=== PATIENT | female | born 1970 ===

== ENCOUNTER 2022-04-11 13:34 | Inpatient (IN) ==
[2022-04-11] MEDS ORDERED: 0.9 % SODIUM CHLORIDE 2,000 ML IV ONE (13:54)
[2022-04-11] MEDS ORDERED: ACETAMINOPHEN 1,000 MG/100 ML BAG IV ONE (13:59)
[2022-04-11] MEDS ORDERED: VANCOMYCIN 1,000 MG in 0.9 % SODIUM CHLORIDE 250 ML IV ONE (14:00)
[2022-04-11] MEDS ORDERED: PIPERACILLIN SODIUM/TAZOBACTAM 3.375 GM in DEXTROSE 5% IN WATER 50 ML IV ONE (14:00)
[2022-04-11 14:03] LABS: POC Calcium, Ionized 0.96 (1.16-1.32); POC Creatinine 0.7 (0.6-1.2); POC Potassium 3.9 (3.3-5.1)
[2022-04-11 15:21] LABS: Basophils # (Auto) 0.07 K/mcL (0.00-0.30); Basophils % (Auto) 0.4 % (0.0-2.0); Eosinophils # (Auto) 0.04 K/mcL (0.00-0.70); Eosinophils % (Auto) 0.2 % (0.0-7.0); Hematocrit 35.3 % (34.1-44.9); Hemoglobin 11.6 g/dL (11.2-15.7); Lymphocytes # (Auto) 0.38 K/mcL (1.50-4.80); Lymphocytes % (Auto) 2.2 % (15.5-49.0); Mean Cell Volume 83.3 fL (80.0-100.0); Mean Corpuscular HGB Conc 32.9 g/dL (31.0-36.0); Mean Platelet Volume 9.9 fL (8.8-12.5); Monocytes # (Auto) 0.34 K/mcL (0.10-0.90); Neutrophils % (Auto) 94.3 % (38.0-78.0); Platelet Count 192 K/mcL (140-440); RBC 4.24 M/mcL (3.59-5.38); Red Cell Distribution Width 14.6 % (11.5-14.5); WBC 17.1 K/mcL (4.5-11.0)
[2022-04-11 15:32] LABS: Amphetamine Screen,Urine Suspect positive; Barbiturate Screen,Urine None detected; Benzodiazepines Screen,Urine None detected; Cannabinoid Screen,Urine None detected; Cocaine Screen,Urine None detected; Opiate Screen,Urine None detected; Oxycodone, Urine Screen None detected; Phencyclidine Screen,Urine None detected
[2022-04-11 15:32] LABS: Alcohol, Blood < 10.0 mg/dL; Alcohol,Blood < 0.010 gm/dL (<0.010)
[2022-04-11 15:36] LABS: Appearance,Urine CLEAR (Clear); Bilirubin,Urine Negative (Negative); Color,Urine DK. YELLOW; Culture Indicated,Urine yes; Glucose,Urine (UA) NEGATIVE (Negative); Ketones,Urine NEGATIVE (Negative); Leukocyte Esterase,Urine NEGATIVE /uL (Negative); Mucus,Urine FEW /hpf; Nitrate,Urine NEGATIVE (Negative); Protein,Urine 100 mg/dL (Negative); Specific Gravity,Urine 1.025 (1.000-1.035); Urine Blood LARGE ery/mcL (Negative); Urine RBC 71 /hpf (0-3); Urine Squamous Epithelial Cell 0 /hpf (0-4); Urine WBC 22 /hpf (0-4)
--- NOTE | 2022-04-11 15:48 | Cat Scan Report ---
INDICATION: ams. Encephalopathy COMPARISON: None. TECHNIQUE: Axial noncontrast-enhanced images through the brain. Sagittally and coronally reformatted images. FINDINGS: Cerebral hemispheres:Examination is suboptimal due to patient motion. No acute intracranial hemorrhage. No intra-axial hematoma. No focal attenuation abnormality or localized mass effect. No significant hydrocephalus. Brainstem and cerebellum:No intra-axial abnormality Extra-axial:No acute hemorrhage. No subdural or epidural hematoma. No subarachnoid hemorrhage. Basilar cisterns are normal Calvarial:No calvarial fracture. No lytic lesion Temporal bones are negative. No destructive lesions Soft tissue, orbits, sinuses:Mild mucosal thickening in anterior ethmoid sinuses bilaterally. There is mucosal thickening within the left sphenoid sinus. Mucosal thickening in the inferior maxillary sinus bilaterally. Findings are consistent with sinusitis. No air-fluid levels. IMPRESSION: 1. Limited evaluation due to patient motion 2. No acute intracranial abnormality 3. Mild inflammatory disease of the ethmoid, maxillary, and sphenoid sinuses The exam was performed using radiation dose optimization techniques including, but not limited to, automated exposure control, adjustment of the mA and/or kV according to patient size and use of iterative reconstruction technique. Interpreted and Authenticated by: Reyes Flores 04/11/22
[2022-04-11 15:49] LABS: ALT/SGPT 60 U/L (<40); AST/SGOT 96 U/L (<32); Albumin 2.1 gm/dL (3.2-5.2); Alkaline Phosphatase 239 U/L (39-117); Bilirubin,Direct 0.5 mg/dL (<0.3); Bilirubin,Total 0.8 mg/dL (0.1-1.0); Globulin 4.2 gm/dL (2.2-3.7); Thyroid Stimulating Hormone 2.54 uIU/mL (0.27-5.01)
--- NOTE | 2022-04-11 15:49 | XRay Report ---
INDICATION: sepsis TECHNIQUE: AP portable supine chest x-ray COMPARISON: None FINDINGS:Examination is obtained in supine position without optimal inspiration Lungs:Lungs are negative. No focal pulmonary parenchymal infiltrate or mass Heart, vascular:No significant cardiomegaly. Pulmonary vascularity is normal. No pulmonary edema or pulmonary congestion Mediastinum, young:No mediastinal widening. No hilar mass Pleura:No pleural fluid. No pleural-based mass or calcification Skeletal:Negative. IMPRESSION: 1. Technically suboptimal chest x-ray 2. No focal abnormality Interpreted and Authenticated by: Reyes Flores 04/11/22
[2022-04-11] MEDS ORDERED: LORazepam 2 MG/ML VIAL IV ONE (16:34)
--- NOTE | 2022-04-11 17:01 | Emergency Department Note ---
Altered Mental Status HPI General Chief Complaint: Altered Mental Status Stated Complaint: AMS, Weakness, Fever Time Seen by Provider: 04/11/22 13:38 Source: EMS Mode of arrival: EMS Limitations: no limitations History of Present Illness HPI Narrative: Narrative: Patient presents to the emergency department with confusion, fevers. Patient has been unwell for the last week or so. History is mostly obtained from the patient's son who lives with her and is at the bedside. He states that the patient has had fevers for the last week or so has been complaining of diffuse muscle aches but no specific location of pain. The patient is otherwise healthy she does not take any medications. The patient was seen in the emergency department at the beginning of the month for lower back and pelvis pain. She was prescribed muscle relaxants for this. Patient was seen in the emergency department yesterday her sodium was 125 and viral testing including COVID and influenza was negative. Patient was discharged home but the son states has had a decline in mentation to where she is barely speaking to him. EMS reported that there were seizures the son denies this. The son denies any nausea, vomiting urinary changes he does state that her fever has been up to 104. Related Data Home Medications Medication Instructions Recorded Confirmed ketorolac 10 mg tablet 10 mg PO TID 04/11/22 04/11/22 Previous Rx's Medication Instructions Recorded cyclobenzaprine 5 mg tablet 5 mg PO TID PRN muscle spasm #15 04/03/22 tabs Allergies Allergy/AdvReac Type Severity Reaction Status Date / Time No Known Drug Allergies Allergy Verified 04/10/22 11:48 Review of Systems ROS ROS Narrative: Narrative: Limited history obtained from son otherwise negative. [facility] Narrative Patient History Narrative: Narrative: Medical/Surgical/Family History All Active Problems (Updated 04/11/22 @ 18:47 by Mitchel Baer MD) Strain of lumbar region (Acute) Kissing spine of lumbar region (Acute) Viral illness (Acute) Acute hyponatremia (Acute) Meningitis (Acute) Acute hyponatremia (Acute) Sepsis (Acute) Acute alteration in mental status (Acute) Social History Smoking Status: Current every day smoker Exam Narrative Narrative: Narrative: Vital signs noted General: Patient is alert her eyes are closed but will open them on command she repeats "I am in pain" HEENT: NCAT PERRL difficulty tracking but extraocular movements appear to be intact pupils are approximately 5 mm Neck: Supple, trachea midline Cardiovascular: Tachycardic. No murmur. No rubs. No gallops. Respiratory: No respiratory distress. Breath sounds equal. Lungs clear. Gastrointestinal: Soft. No tenderness Musculoskeletal: No pain. No soft tissue swelling. Good ROM. No signs injury Skin: Warm. Dry. No rash Neurologic: Patient moves all extremities to nauseous stimuli she has difficulty following voice commands General Limitations: no limitations Course Vital Signs Vital signs: Vital Signs Temperature 103 F H 04/11/22 13:35 Pulse Rate 120 H 04/11/22 13:35 Respiratory Rate 28 H 04/11/22 13:35 Blood Pressure 142/101 04/11/22 13:35 Oxygen Delivery Method Room Air 04/11/22 13:35 Temperature 98.5 F 04/12/22 06:00 Pulse Rate 94 H 04/12/22 06:00 Respiratory Rate 19 04/12/22 06:00 Blood Pressure 128/80 04/12/22 06:00 Pulse Oximetry (%) 100 04/12/22 06:00 Oxygen Delivery Method Nasal Cannula 04/12/22 06:00 Oxygen Flow Rate (L/min) 2 04/12/22 06:00 Procedures Lumbar Puncture Consent Obtained: verbal consent Time Out Performed: No Patient Position: right lateral decubitus Skin Prep: Povidone-Iodine 1% Local Anesthetic: none Spinal Needle Gauge: 22G Interspace Used: L4-L5 Complications: unable to obtain CSF MDM MDM Narrative Medical decision making narrative: Narrative: Patient presents to the emergency department with altered mental status and fevers. No other specific complaints were given patient is confused upon arrival history is mostly obtained from her son who is at bedside. Patient was febrile, tachycardic and tachypneic upon arrival. She is unable to give any meaningful history. I did review patient's prior ED visits. Patient's initial vital signs including fever, tachycardia tachypnea along with patient's altered mental status is concerning for sepsis. 2 sets of blood cultures were ordered patient was empirically started on Vanco and Zosyn. Chest x-ray is without evidence of pneumonia reviewed by myself, urinalysis is not indicative of urinary tract infection. Patient's abdomen is soft and there is no obvious tenderness. Patient does have leukocytosis with left shift, lactate is 2.4. Patient's procalcitonin is 3.42. Patient's UDS is positive for amphetamines. The family members were asked if they know of any methamphetamine use and they do not know. ET scan of the brain does not show any intracranial hemorrhage or mass. I did attempt to perform a lumbar puncture and was unsuccessful, radiology performed under fluoroscopy and was successful grossly it did appear to be cloudy suspicious for infection. CSF sent for analysis. I have spoken with Dr. Rivera who has agreed to admit the patient to the ICU. Lab Data 04/11/22 14:00 Labs: Lab Results 04/11/22 04/11/22 04/11/22 Range/Units 13:52 13:59 14:00 WBC (4.5-11.0) K/mcL RBC (3.59-5.38) M/mcL Hgb (11.2-15.7) g/dL Hct (34.1-44.9) % POC Hct 39.0 (36-48) MCV (80.0-100.0) fL MCH (26.0-34.0) pg MCHC (31.0-36.0) g/dL RDW (11.5-14.5) % Plt Count (140-440) K/mcL MPV (8.8-12.5) fL Immature Gran % (Auto) (0.0-0.5) % Neut % (Auto) (38.0-78.0) % Lymph % (Auto) (15.5-49.0) % Benzie % (Auto) (1.0-12.0) % Eos % (Auto) (0.0-7.0) % Baso % (Auto) (0.0-2.0) % Lymph # (Auto) (1.50-4.80) K/mcL Benzie # (Auto) (0.10-0.90) K/mcL Eos # (Auto) (0.00-0.70) K/mcL Baso # (Auto) (0.00-0.30) K/mcL Immature Gran # (0.00-0.05) K/mcl Absolute Neutrophils (1.80-8.00) K/mcL POC VBG pH 7.50 H (7.32-7.42) POC VBG pCO2 at Temp 30.8 L (41-51) POC VBG pO2 33 (25-40) POC VBG HCO3 24.1 (24-28) POC VBG Total CO2 25.0 (25-29) POC Venous O2 Sat 70.0 (40-70) POC VBG Base Excess 1.0 (-2-2) VBG Lactic Acid 2.4 H (0.5-2) POC Sodium 129 L (133-145) POC Potassium 3.9 (3.3-5.1) POC Chloride 97 (96-108) POC Total CO2 24.0 (22-30) POC BUN 20 (6-20) POC Creatinine 0.7 (0.6-1.2) POC Glucose 161 H (70-105) POC WB Ioniz Calcium 0.96 L (1.16-1.32) Total Bilirubin 0.8 (0.1-1.0) mg/dL Direct Bilirubin 0.5 H (<0.3) mg/dL AST 96 H (<32) U/L ALT 60 H (<40) U/L Alkaline Phosphatase 239 H (39-117) U/L Total Protein 6.3 (5.9-8.4) gm/dL Albumin 2.1 L (3.2-5.2) gm/dL Globulin 4.2 H (2.2-3.7) gm/dL Lipase (7-60) U/L Procalcitonin (<0.10) ng/mL TSH 2.54 (0.27-5.01) uIU/mL Urine Color Urine Appearance (Clear) Urine pH (5.0-9.0) Ur Specific Zion (1.000-1.035) Urine Protein (Negative) mg/dL Urine Glucose (UA) (Negative) mg/dL Urine Ketones (Negative) mg/dL Urine Occult Blood (Negative) natalya/mcL Urine Nitrate (Negative) Urine Bilirubin (Negative) mg/dL Urine Urobilinogen mg/dL Ur Leukocyte Esterase (Negative) /uL Urine RBC (0-3) /hpf Urine WBC (0-4) /hpf Ur Squamous Epith Cells (0-4) /hpf Urine Bacteria (0) /hpf Urine Mucus (None) /hpf Ur Culture Indicated? CSF Source CSF Appearance CSF Color CSF RBC (0-1) /cumm CSF Total Nucleated Auto (0-5) /cumm CSF Neutrophils (0-7) % CSF Lymphocytes (28-96) % CSF Monocytes (16-56) % CSF Glucose (40-70) mg/dL CSF Total Protein (15.0-45.0) mg/dL Urine Opiates Screen Ur Opiates Confirm Ur Oxycodone Screen U Oxycod/Oxymor Confirm Urine Methadone Screen Ur Methadone Confirm Ur Barbiturates Screen Ur Barbiturate Confirm Ur Phencyclidine Scrn Urine PCP Confirm Ur Amphetamines Screen U Benzodiazepines Scrn Ur Benzodiazepine, Qnt Urine Cocaine Screen Urine Cocaine Confirm U Cannabinoids Confirm U Marijuana (THC) Screen Ethyl Alcohol mg/dL mg/dL Ethyl Alcohol g/dL (<0.010) gm/dL 04/11/22 04/11/22 04/11/22 Range/Units 14:00 14:00 14:00 WBC 17.1 H (4.5-11.0) K/mcL RBC 4.24 (3.59-5.38) M/mcL Hgb 11.6 (11.2-15.7) g/dL Hct 35.3 (34.1-44.9) % POC Hct (36-48) MCV 83.3 (80.0-100.0) fL MCH 27.4 (26.0-34.0) pg MCHC 32.9 (31.0-36.0) g/dL RDW 14.6 H (11.5-14.5) % Plt Count 192 (140-440) K/mcL MPV 9.9 (8.8-12.5) fL Immature Gran % (Auto) 0.9 H (0.0-0.5) % Neut % (Auto) 94.3 H (38.0-78.0) % Lymph % (Auto) 2.2 L (15.5-49.0) % Benzie % (Auto) 2.0 (1.0-12.0) % Eos % (Auto) 0.2 (0.0-7.0) % Baso % (Auto) 0.4 (0.0-2.0) % Lymph # (Auto) 0.38 L (1.50-4.80) K/mcL Benzie # (Auto) 0.34 (0.10-0.90) K/mcL Eos # (Auto) 0.04 (0.00-0.70) K/mcL Baso # (Auto) 0.07 (0.00-0.30) K/mcL Immature Gran # 0.15 H (0.00-0.05) K/mcl Absolute Neutrophils 16.07 H (1.80-8.00) K/mcL POC VBG pH (7.32-7.42) POC VBG pCO2 at Temp (41-51) POC VBG pO2 (25-40) POC VBG HCO3 (24-28) POC VBG Total CO2 (25-29) POC Venous O2 Sat (40-70) POC VBG Base Excess (-2-2) VBG Lactic Acid (0.5-2) POC Sodium (133-145) POC Potassium (3.3-5.1) POC Chloride (96-108) POC Total CO2 (22-30) POC BUN (6-20) POC Creatinine (0.6-1.2) POC Glucose (70-105) POC WB Ioniz Calcium (1.16-1.32) Total Bilirubin (0.1-1.0) mg/dL Direct Bilirubin (<0.3) mg/dL AST (<32) U/L ALT (<40) U/L Alkaline Phosphatase (39-117) U/L Total Protein (5.9-8.4) gm/dL Albumin (3.2-5.2) gm/dL Globulin (2.2-3.7) gm/dL Lipase (7-60) U/L Procalcitonin 3.42 H (<0.10) ng/mL TSH (0.27-5.01) uIU/mL Urine Color Urine Appearance (Clear) Urine pH (5.0-9.0) Ur Specific Zion (1.000-1.035) Urine Protein (Negative) mg/dL Urine Glucose (UA) (Negative) mg/dL Urine Ketones (Negative) mg/dL Urine Occult Blood (Negative) natalya/mcL Urine Nitrate (Negative) Urine Bilirubin (Negative) mg/dL Urine Urobilinogen mg/dL Ur Leukocyte Esterase (Negative) /uL Urine RBC (0-3) /hpf Urine WBC (0-4) /hpf Ur Squamous Epith Cells (0-4) /hpf Urine Bacteria (0) /hpf Urine Mucus (None) /hpf Ur Culture Indicated? CSF Source CSF Appearance CSF Color CSF RBC (0-1) /cumm CSF Total Nucleated Auto (0-5) /cumm CSF Neutrophils (0-7) % CSF Lymphocytes (28-96) % CSF Monocytes (16-56) % CSF Glucose (40-70) mg/dL CSF Total Protein (15.0-45.0) mg/dL Urine Opiates Screen Ur Opiates Confirm Ur Oxycodone Screen U Oxycod/Oxymor Confirm Urine Methadone Screen Ur Methadone Confirm Ur Barbiturates Screen Ur Barbiturate Confirm Ur Phencyclidine Scrn Urine PCP Confirm Ur Amphetamines Screen U Benzodiazepines Scrn Ur Benzodiazepine, Qnt Urine Cocaine Screen Urine Cocaine Confirm U Cannabinoids Confirm U Marijuana (THC) Screen Ethyl Alcohol mg/dL < 10.0 mg/dL Ethyl Alcohol g/dL < 0.010 (<0.010) gm/dL 04/11/22 04/11/22 04/11/22 Range/Units 14:00 14:11 14:11 WBC (4.5-11.0) K/mcL RBC (3.59-5.38) M/mcL Hgb (11.2-15.7) g/dL Hct (34.1-44.9) % POC Hct (36-48) MCV (80.0-100.0) fL MCH (26.0-34.0) pg MCHC (31.0-36.0) g/dL RDW (11.5-14.5) % Plt Count (140-440) K/mcL MPV (8.8-12.5) fL Immature Gran % (Auto) (0.0-0.5) % Neut % (Auto) (38.0-78.0) % Lymph % (Auto) (15.5-49.0) % Benzie % (Auto) (1.0-12.0) % Eos % (Auto) (0.0-7.0) % Baso % (Auto) (0.0-2.0) % Lymph # (Auto) (1.50-4.80) K/mcL Benzie # (Auto) (0.10-0.90) K/mcL Eos # (Auto) (0.00-0.70) K/mcL Baso # (Auto) (0.00-0.30) K/mcL Immature Gran # (0.00-0.05) K/mcl Absolute Neutrophils (1.80-8.00) K/mcL POC VBG pH (7.32-7.42) POC VBG pCO2 at Temp (41-51) POC VBG pO2 (25-40) POC VBG HCO3 (24-28) POC VBG Total CO2 (25-29) POC Venous O2 Sat (40-70) POC VBG Base Excess (-2-2) VBG Lactic Acid (0.5-2) POC Sodium (133-145) POC Potassium (3.3-5.1) POC Chloride (96-108) POC Total CO2 (22-30) POC BUN (6-20) POC Creatinine (0.6-1.2) POC Glucose (70-105) POC WB Ioniz Calcium (1.16-1.32) Total Bilirubin (0.1-1.0) mg/dL Direct Bilirubin (<0.3) mg/dL AST (<32) U/L ALT (<40) U/L Alkaline Phosphatase (39-117) U/L Total Protein (5.9-8.4) gm/dL Albumin (3.2-5.2) gm/dL Globulin (2.2-3.7) gm/dL Lipase 25 (7-60) U/L Procalcitonin (<0.10) ng/mL TSH (0.27-5.01) uIU/mL Urine Color Dk. yellow Urine Appearance Clear (Clear) Urine pH 6.0 (5.0-9.0) Ur Specific Zion 1.025 (1.000-1.035) Urine Protein 100 A (Negative) mg/dL Urine Glucose (UA) Negative (Negative) mg/dL Urine Ketones Negative (Negative) mg/dL Urine Occult Blood Large A (Negative) natalya/mcL Urine Nitrate Negative (Negative) Urine Bilirubin Negative (Negative) mg/dL Urine Urobilinogen 4.0 A mg/dL Ur Leukocyte Esterase Negative (Negative) /uL Urine RBC 71 H (0-3) /hpf Urine WBC 22 H (0-4) /hpf Ur Squamous Epith Cells 0 (0-4) /hpf Urine Bacteria None (0) /hpf Urine Mucus Few A (None) /hpf Ur Culture Indicated? yes CSF Source CSF Appearance CSF Color CSF RBC (0-1) /cumm CSF Total Nucleated Auto (0-5) /cumm CSF Neutrophils (0-7) % CSF Lymphocytes (28-96) % CSF Monocytes (16-56) % CSF Glucose (40-70) mg/dL CSF Total Protein (15.0-45.0) mg/dL Urine Opiates Screen None detected Ur Opiates Confirm TNP Ur Oxycodone Screen None detected U Oxycod/Oxymor Confirm TNP Urine Methadone Screen None detected Ur Methadone Confirm TNP Ur Barbiturates Screen None detected Ur Barbiturate Confirm TNP Ur Phencyclidine Scrn None detected Urine PCP Confirm TNP Ur Amphetamines Screen Suspect positive A U Benzodiazepines Scrn None detected Ur Benzodiazepine, Qnt TNP Urine Cocaine Screen None detected Urine Cocaine Confirm TNP U Cannabinoids Confirm TNP U Marijuana (THC) Screen None detected Ethyl Alcohol mg/dL mg/dL Ethyl Alcohol g/dL (<0.010) gm/dL 04/11/22 04/11/22 Range/Units 17:25 18:12 WBC (4.5-11.0) K/mcL RBC (3.59-5.38) M/mcL Hgb (11.2-15.7) g/dL Hct (34.1-44.9) % POC Hct (36-48) MCV (80.0-100.0) fL MCH (26.0-34.0) pg MCHC (31.0-36.0) g/dL RDW (11.5-14.5) % Plt Count (140-440) K/mcL MPV (8.8-12.5) fL Immature Gran % (Auto) (0.0-0.5) % Neut % (Auto) (38.0-78.0) % Lymph % (Auto) (15.5-49.0) % Benzie % (Auto) (1.0-12.0) % Eos % (Auto) (0.0-7.0) % Baso % (Auto) (0.0-2.0) % Lymph # (Auto) (1.50-4.80) K/mcL Benzie # (Auto) (0.10-0.90) K/mcL Eos # (Auto) (0.00-0.70) K/mcL Baso # (Auto) (0.00-0.30) K/mcL Immature Gran # (0.00-0.05) K/mcl Absolute Neutrophils (1.80-8.00) K/mcL POC VBG pH (7.32-7.42) POC VBG pCO2 at Temp (41-51) POC VBG pO2 (25-40) POC VBG HCO3 (24-28) POC VBG Total CO2 (25-29) POC Venous O2 Sat (40-70) POC VBG Base Excess (-2-2) VBG Lactic Acid 2.2 H (0.5-2) POC Sodium (133-145) POC Potassium (3.3-5.1) POC Chloride (96-108) POC Total CO2 (22-30) POC BUN (6-20) POC Creatinine (0.6-1.2) POC Glucose (70-105) POC WB Ioniz Calcium (1.16-1.32) Total Bilirubin (0.1-1.0) mg/dL Direct Bilirubin (<0.3) mg/dL AST (<32) U/L ALT (<40) U/L Alkaline Phosphatase (39-117) U/L Total Protein (5.9-8.4) gm/dL Albumin (3.2-5.2) gm/dL Globulin (2.2-3.7) gm/dL Lipase (7-60) U/L Procalcitonin (<0.10) ng/mL TSH (0.27-5.01) uIU/mL Urine Color Urine Appearance (Clear) Urine pH (5.0-9.0) Ur Specific Zion (1.000-1.035) Urine Protein (Negative) mg/dL Urine Glucose (UA) (Negative) mg/dL Urine Ketones (Negative) mg/dL Urine Occult Blood (Negative) natalya/mcL Urine Nitrate (Negative) Urine Bilirubin (Negative) mg/dL Urine Urobilinogen mg/dL Ur Leukocyte Esterase (Negative) /uL Urine RBC (0-3) /hpf Urine WBC (0-4) /hpf Ur Squamous Epith Cells (0-4) /hpf Urine Bacteria (0) /hpf Urine Mucus (None) /hpf Ur Culture Indicated? CSF Source Tube 3 CSF Appearance Hazy CSF Color Xanthochromic CSF RBC 6000 H (0-1) /cumm CSF Total Nucleated Auto 3687 H (0-5) /cumm CSF Neutrophils 39 H (0-7) % CSF Lymphocytes 33 (28-96) % CSF Monocytes 28 (16-56) % CSF Glucose 51 (40-70) mg/dL CSF Total Protein 96.0 H (15.0-45.0) mg/dL Urine Opiates Screen Ur Opiates Confirm Ur Oxycodone Screen U Oxycod/Oxymor Confirm Urine Methadone Screen Ur Methadone Confirm Ur Barbiturates Screen Ur Barbiturate Confirm Ur Phencyclidine Scrn Urine PCP Confirm Ur Amphetamines Screen U Benzodiazepines Scrn Ur Benzodiazepine, Qnt Urine Cocaine Screen Urine Cocaine Confirm U Cannabinoids Confirm U Marijuana (THC) Screen Ethyl Alcohol mg/dL mg/dL Ethyl Alcohol g/dL (<0.010) gm/dL CC TIME Critical Care Time Critical Care Time: Yes Total Critical Care Time: 45 Attestation: Total critical care time of 45 min including performance of history and physical exam, review of results, re-examinations, time spent documenting, will call order clerk, review of old records, discussions with patient and family, discussions with wine consultant(s), discussion with admitting physician, completion of admission/transfer paperwork. This does not include time for any separately documented procedures. Discharge Plan Patient/Caregiver Discharge Instructions Pt seen by SHIRT BANDER/PA only: No Clinical Impression: Meningitis, Acute hyponatremia, Acute alteration in mental status Sepsis Qualifiers: Sepsis type: sepsis due to unspecified organism Sepsis acute organ dysfunction status: without acute organ dysfunction Qualified Code(s): A41.9 - Sepsis, unspecified organism Patient Disposition: Xfer As Inpt ([facility]) Condition: Critical Discharge Date/Time: 04/11/22 19:25
[2022-04-11] MEDS ORDERED: DEXAMETHASONE 10 MG/ML VIAL IV ONE (17:23)
[2022-04-11] MEDS ORDERED: cefTRIAXone 1 GM VIAL IV ONE ×3 (17:23→18:16)
[2022-04-11] MEDS ORDERED: cefTRIAXone 2 GM in DEXTROSE 5% IN WATER 50 ML IV ONE (17:33)
--- NOTE | 2022-04-11 17:50 | XRay Report ---
INDICATION: CSF sample TECHNIQUE: This patient was given Ativan in the emergency room. The emergency room nurses were with the patient to assist in sedation and positioning. Routine Betadine skin cleansing. A 20-gauge spinal needle was utilized. Lumbar puncture performed at the L2-3 level. 6 mL cloudy CSF was removed. Spot film image not saved. 38 seconds fluoroscopy utilized IMPRESSION: 1. Lumbar puncture performed at the L2-3 level 2. 6 mL cloudy CSF removed Interpreted and Authenticated by: Reyes Flores 04/11/22
--- NOTE | 2022-04-11 18:24 | Internal Med History&Physical ---
HPI History of Present Illness Patient information: Note initiated : 04/11/22 at 6:11 pm Service Date, if different from initiated Date: [] Patient: Aide Jerez 52 y/o F admitted on for AMS, Weakness, Fever. Chief Complaint: [] History of present illness: Ms. Jerez is a 52 year old female with no significant past medical history who presented to the emergency department with confusion and fevers. The patient presented with her son who lives with her. The patient is unable to provide a history due to encephalopathy therefore the history was taken from her son who said that she had been sick for 1 to 2 weeks.. She initially com plained of diffuse muscle aches and was seen in the emergency department about a week prior to admission complaining of lower back pain and pelvic pain. She was discharged to home, a CT of the lumbar spine did not show any acute changes to explain her symptoms. The patient presented to the emergency department again on 04/10/2022 which is the day prior to admission complaining of body aches, fevers and diarrhea. At that time was found to have a sodium level of 125 which was attributed to a viral syndrome. The patient was discharged home then presented on the day of admission with fevers, tachycardia, tachypnea, leukocytosis and a lactic acid level of 2.4. The patient was started on broad- spectrum antibiotics and IV fluid. Sepsis work-up included urinalysis which was not suspicious for UTI, chest x-ray did not show any pulmonary infiltrates. A lumbar puncture was performed by radiology and per report purulent cerebrospinal fluid was drained raising concern for bacterial meningitis. Additionally, the patient did have a UDS in the ED which was positive for amphetamines. It is unclear if the patient has a history of IV drug use. Review of systems: Unable to obtain due to encephalopathy. Physical exam Head: Atraumatic, normal inspection. Eyes: normal appearance, no scleral icterus. Neck: full ROM Respiratory: Tachypnea, no respiratory distress. Cardiovascular: Regular tachycardia, S1, S2. GI/Abdominal: soft, nontender, no guarding. Extremities: full range of motion, nontender. Neurological: Positive for Brudzinski's sign, sensory and motor intact. Psychiatric: Impaired cognition Skin: warm, normal color PFSH PFSH All Active Problems (Updated 04/10/22 @ 13:14 by Tyler Martin DO) Strain of lumbar region (Acute) Kissing spine of lumbar region (Acute) Viral illness (Acute) Acute hyponatremia (Acute) Social History smoking status: Current every day smoker MEDS/ALLERGIES Home Medications and Allergies Home Medications Medication Instructions Recorded Confirmed Type cyclobenzaprine 5 mg tablet 5 mg PO TID PRN muscle spasm #15 04/03/22 Rx tabs Allergies Allergy/AdvReac Type Severity Reaction Status Date / Time No Known Drug Allergies Allergy Verified 04/10/22 11:48 EXAM Constitutional Vitals: Temp Pulse Resp BP Pulse Ox O2 Del Method 101.4 F H 117 H 30 H 157/95 95 Room Air 04/11/22 17:01 04/11/22 17:58 04/11/22 17:58 04/11/22 17:34 04/11/22 17:58 04/11/22 13:35 DATA Data Completed and Pending Labs: Labs from last 24 hours 04/11/22 04/11/22 04/11/22 17:25 17:25 17:25 WBC RBC Hgb Hct POC Hct MCV MCH MCHC RDW Plt Count MPV Immature Gran % (Auto) Neut % (Auto) Lymph % (Auto) [place] % (Auto) Eos % (Auto) Baso % (Auto) Lymph # (Auto) [place] # (Auto) Eos # (Auto) Baso # (Auto) Immature Gran # Absolute Neutrophils POC VBG pH POC VBG pCO2 at Temp POC VBG pO2 POC VBG HCO3 POC VBG Total CO2 POC Venous O2 Sat POC VBG Base Excess VBG Lactic Acid POC Sodium POC Potassium POC Chloride POC Total CO2 POC BUN POC Creatinine POC Glucose POC WB Ioniz Calcium Total Bilirubin Direct Bilirubin AST ALT Alkaline Phosphatase Total Protein Albumin Globulin Lipase Procalcitonin TSH Urine Color Urine Appearance Urine pH Ur Specific [place] Urine Protein Urine Glucose (UA) Urine Ketones Urine Occult Blood Urine Nitrate Urine Bilirubin Urine Urobilinogen Ur Leukocyte Esterase Urine RBC Urine WBC Ur Squamous Epith Cells Urine Bacteria Urine Mucus Ur Culture Indicated? CSF Source Pending CSF Appearance Pending CSF Color Pending CSF Total Nucleated Auto Pending CSF Glucose Pending CSF Total Protein Pending CSF Adenovirus Ab Pending CSF [place] A(2) Ab Pending CSF [place] A(4) Ab Pending CSF [place] A(7) Ab Pending CSF [place] A(9) Ab Pending CSF [place] A(10) Ab Pending CSF [place] A(16) Ab Pending CSF [place] B(1) Ab Pending CSF [place] B(2) Ab Pending CSF [place] B(3) Ab Pending CSF [place] B(4) Ab Pending CSF [place] B(5) Ab Pending CSF [place] B(6) Ab Pending CSF CMV IgG Ab Pending CSF CMV IgM Ab Pending CSF Echovirus Type 4 Ab Pending CSF Echovirus Type 7 Ab Pending CSF Echovirus Type 9 Ab Pending CSF Echovirus Typ 11 Ab Pending CSF Echovirus Typ 30 Ab Pending CSF [place] Enceph IgG Pending CSF [place] Enceph IgM Pending CSF Calif Enceph Interp Pending CSF E Equine Enceph IgG Pending CSF E Equine Enceph IgM Pending CSF E Equine Enceph Intrp Pending CSF Danisha Enceph IgG Pending CSF Danisha Enceph IgM Pending CSF Danisha Enceph Intrp Pending CSF W Equine Enceph IgG Pending CSF W Equine Enceph IgM Pending CSF W Equine Enceph Intrp Pending CSF Herpes I IgG Ab Pending CSF Herpes I IgM Ab Pending CSF Herpes II IgM Ab Pending CSF Influenza A Ab Pending CSF Influenza B Ab Pending CSF Lymph choriomen IgG Pending CSF Lymph choriomen IgM Pending CSF Lymph choriomen Int Pending CSF Mumps Virus IgG Ab Pending CSF Mumps Virus IgM Ab Pending CSF Mumps Ab Interpret Pending CSF Rubeola IgG Ab Pending CSF Rubeola IgM Ab Pending CSF [place] Interpret Pending CSF VZV IgM Ab Pending CSF [place] IgG Ab Pending CSF [place] IgM Ab Pending Urine Opiates Screen Ur Opiates Confirm Ur Oxycodone Screen U Oxycod/Oxymor Confirm Urine Methadone Screen Ur Methadone Confirm Ur Barbiturates Screen Ur Barbiturate Confirm Ur Phencyclidine Scrn Urine PCP Confirm Ur Amphetamines Screen U Amphetamines Confirm U Benzodiazepines Scrn Ur Benzodiazepine, Qnt Urine Cocaine Screen Urine Cocaine Confirm U Cannabinoids Confirm U Marijuana (THC) Screen Ethyl Alcohol mg/dL Ethyl Alcohol g/dL Herpes Simplex Source Pending HSV II IgG Index Pending HSV I DNA PCR Pending HSV II DNA PCR Pending 04/11/22 04/11/22 04/11/22 14:11 14:11 14:00 WBC RBC Hgb Hct POC Hct MCV MCH MCHC RDW Plt Count MPV Immature Gran % (Auto) Neut % (Auto) Lymph % (Auto) [place] % (Auto) Eos % (Auto) Baso % (Auto) Lymph # (Auto) [place] # (Auto) Eos # (Auto) Baso # (Auto) Immature Gran # Absolute Neutrophils POC VBG pH POC VBG pCO2 at Temp POC VBG pO2 POC VBG HCO3 POC VBG Total CO2 POC Venous O2 Sat POC VBG Base Excess VBG Lactic Acid POC Sodium POC Potassium POC Chloride POC Total CO2 POC BUN POC Creatinine POC Glucose POC WB Ioniz Calcium Total Bilirubin Direct Bilirubin AST ALT Alkaline Phosphatase Total Protein Albumin Globulin Lipase 25 Procalcitonin TSH Urine Color Dk. yellow Urine Appearance Clear Urine pH 6.0 Ur Specific [place] 1.025 Urine Protein 100 A Urine Glucose (UA) Negative Urine Ketones Negative Urine Occult Blood Large A Urine Nitrate Negative Urine Bilirubin Negative Urine Urobilinogen 4.0 A Ur Leukocyte Esterase Negative Urine RBC 71 H Urine WBC 22 H Ur Squamous Epith Cells 0 Urine Bacteria None Urine Mucus Few A Ur Culture Indicated? yes CSF Source CSF Appearance CSF Color CSF Total Nucleated Auto CSF Glucose CSF Total Protein CSF Adenovirus Ab CSF [place] A(2) Ab CSF [place] A(4) Ab CSF [place] A(7) Ab CSF [place] A(9) Ab CSF [place] A(10) Ab CSF [place] A(16) Ab CSF [place] B(1) Ab CSF [place] B(2) Ab CSF [place] B(3) Ab CSF [place] B(4) Ab CSF [place] B(5) Ab CSF [place] B(6) Ab CSF CMV IgG Ab CSF CMV IgM Ab CSF Echovirus Type 4 Ab CSF Echovirus Type 7 Ab CSF Echovirus Type 9 Ab CSF Echovirus Typ 11 Ab CSF Echovirus Typ 30 Ab CSF [place] Enceph IgG CSF [place] Enceph IgM CSF [place] En[place]ph Interp CSF E Equine Enceph IgG CSF E Equine Enceph IgM CSF E Equine Enceph Intrp CSF Danisha Enceph IgG CSF Danisha Enceph IgM CSF Danisha Enceph Intrp CSF W Equine Enceph IgG CSF W Equine Enceph IgM CSF W Equine Enceph Intrp CSF Herpes I IgG Ab CSF Herpes I IgM Ab CSF Herpes II IgM Ab CSF Influenza A Ab CSF Influenza B Ab CSF Lymph choriomen IgG CSF Lymph choriomen IgM CSF Lymph choriomen Int CSF Mumps Virus IgG Ab CSF Mumps Virus IgM Ab CSF Mumps Ab Interpret CSF [place]ube[place] IgG Ab CSF [place] IgM Ab CSF [place] Interpret CSF VZV IgM Ab CSF [place] IgG Ab CSF [place] IgM Ab Urine Opiates Screen None detected Ur Opiates Confirm TNP Ur Oxycodone Screen None detected U Oxycod/Oxymor Confirm TNP Urine Methadone Screen None detected Ur Methadone Confirm TNP Ur Barbiturates Screen None detected Ur Barbiturate Confirm TNP Ur Phencyclidine Scrn None detected Urine PCP Confirm TNP Ur Amphetamines Screen Suspect positive A U Amphetamines Confirm Pending U Benzodiazepines Scrn None detected Ur Benzodiazepine, Qnt TNP Urine Cocaine Screen None detected Urine Cocaine Confirm TNP U Cannabinoids Confirm TNP U Marijuana (THC) Screen None detected Ethyl Alcohol mg/dL Ethyl Alcohol g/dL Herpes Simplex Source HSV II IgG Index HSV I DNA PCR HSV II DNA PCR 04/11/22 04/11/22 04/11/22 14:00 14:00 14:00 WBC 17.1 H RBC 4.24 Hgb 11.6 Hct 35.3 POC Hct MCV 83.3 MCH 27.4 MCHC 32.9 RDW 14.6 H Plt Count 192 MPV 9.9 Immature Gran % (Auto) 0.9 H Neut % (Auto) 94.3 H Lymph % (Auto) 2.2 L [place] % (Auto) 2.0 Eos % (Auto) 0.2 Baso % (Auto) 0.4 Lymph # (Auto) 0.38 L [place] # (Auto) 0.34 Eos # (Auto) 0.04 Baso # (Auto) 0.07 Immature Gran # 0.15 H Absolute Neutrophils 16.07 H POC VBG pH POC VBG pCO2 at Temp POC VBG pO2 POC VBG HCO3 POC VBG Total CO2 POC Venous O2 Sat POC VBG Base Excess VBG Lactic Acid POC Sodium POC Potassium POC Chloride POC Total CO2 POC BUN POC Creatinine POC Glucose POC WB Ioniz Calcium Total Bilirubin Direct Bilirubin AST ALT Alkaline Phosphatase Total Protein Albumin Globulin Lipase Procalcitonin 3.42 H TSH Urine Color Urine Appearance Urine pH Ur Specific [place] Urine Protein Urine Glucose (UA) Urine Ketones Urine Occult Blood Urine Nitrate Urine Bilirubin Urine Urobilinogen Ur Leukocyte Esterase Urine RBC Urine WBC Ur Squamous Epith Cells Urine Bacteria Urine Mucus Ur Culture Indicated? CSF Source CSF Appearance CSF Color CSF Total Nucleated Auto CSF Glucose CSF Total Protein CSF Adenovirus Ab CSF [place] A(2) Ab CSF [place] A(4) Ab CSF [place] A(7) Ab CSF [place] A(9) Ab CSF [place] A(10) Ab CSF [place] A(16) Ab CSF [place] B(1) Ab CSF [place] B(2) Ab CSF [place] B(3) Ab CSF [place] B(4) Ab CSF [place] B(5) Ab CSF [place] B(6) Ab CSF CMV IgG Ab CSF CMV IgM Ab CSF Echovirus Type 4 Ab CSF Echovirus Type 7 Ab CSF Echovirus Type 9 Ab CSF Echovirus Typ 11 Ab CSF Echovirus Typ 30 Ab CSF [place] Enceph IgG CSF [place] Enceph IgM CSF [place] En[place]ph Interp CSF E Equine Enceph IgG CSF E Equine Enceph IgM CSF E Equine Enceph Intrp CSF Danisha Enceph IgG CSF Danisha Enceph IgM CSF Danisha Enceph Intrp CSF W Equine Enceph IgG CSF W Equine Enceph IgM CSF W Equine Enceph Intrp CSF Herpes I IgG Ab CSF Herpes I IgM Ab CSF Herpes II IgM Ab CSF Influenza A Ab CSF Influenza B Ab CSF Lymph choriomen IgG CSF Lymph choriomen IgM CSF Lymph choriomen Int CSF Mumps Virus IgG Ab CSF Mumps Virus IgM Ab CSF Mumps Ab Interpret CSF [place] IgG Ab CSF [place] IgM Ab CSF [place] Interpret CSF VZV IgM Ab CSF [place] IgG Ab CSF [place] IgM Ab Urine Opiates Screen Ur Opiates Confirm Ur Oxycodone Screen U Oxycod/Oxymor Confirm Urine Methadone Screen Ur Methadone Confirm Ur Barbiturates Screen Ur Barbiturate Confirm Ur Phencyclidine Scrn Urine PCP Confirm Ur Amphetamines Screen U Amphetamines Confirm U Benzodiazepines Scrn Ur Benzodiazepine, Qnt Urine Cocaine Screen Urine Cocaine Confirm U Cannabinoids Confirm U Marijuana (THC) Screen Ethyl Alcohol mg/dL < 10.0 Ethyl Alcohol g/dL < 0.010 Herpes Simplex Source HSV II IgG Index HSV I DNA PCR HSV II DNA PCR 04/11/22 04/11/22 04/11/22 14:00 13:59 13:52 WBC RBC Hgb Hct POC Hct 39.0 MCV MCH MCHC RDW Plt Count MPV Immature Gran % (Auto) Neut % (Auto) Lymph % (Auto) [place] % (Auto) Eos % (Auto) Baso % (Auto) Lymph # (Auto) [place] # (Auto) Eos # (Auto) Baso # (Auto) Immature Gran # Absolute Neutrophils POC VBG pH 7.50 H POC VBG pCO2 at Temp 30.8 L POC VBG pO2 33 POC VBG HCO3 24.1 POC VBG Total CO2 25.0 POC Venous O2 Sat 70.0 POC VBG Base Excess 1.0 VBG Lactic Acid 2.4 H POC Sodium 129 L POC Potassium 3.9 POC Chloride 97 POC Total CO2 24.0 POC BUN 20 POC Creatinine 0.7 POC Glucose 161 H POC WB Ioniz Calcium 0.96 L Total Bilirubin 0.8 Direct Bilirubin 0.5 H AST 96 H ALT 60 H Alkaline Phosphatase 239 H Total Protein 6.3 Albumin 2.1 L Globulin 4.2 H Lipase Procalcitonin TSH 2.54 Urine Color Urine Appearance Urine pH Ur Specific [place] Urine Protein Urine Glucose (UA) Urine Ketones Urine Occult Blood Urine Nitrate Urine Bilirubin Urine Urobilinogen Ur Leukocyte Esterase Urine RBC Urine WBC Ur Squamous Epith Cells Urine Bacteria Urine Mucus Ur Culture Indicated? CSF Source CSF Appearance CSF Color CSF Total Nucleated Auto CSF Glucose CSF Total Protein CSF Adenovirus Ab CSF [place] A(2) Ab CSF [place] A(4) Ab CSF [place] A(7) Ab CSF [place] A(9) Ab CSF [place] A(10) Ab CSF [place] A(16) Ab CSF [place] B(1) Ab CSF [place] B(2) Ab CSF [place] B(3) Ab CSF [place] B(4) Ab CSF [place] B(5) Ab CSF [place] B(6) Ab CSF CMV IgG Ab CSF CMV IgM Ab CSF Echovirus Type 4 Ab CSF Echovirus Type 7 Ab CSF Echovirus Type 9 Ab CSF Echovirus Typ 11 Ab CSF Echovirus Typ 30 Ab CSF [place] En[place]ph IgG CSF [place] Enceph IgM CSF [place] En[place] Interp CSF E Equine Enceph IgG CSF E Equine Enceph IgM CSF E Equine Enceph Intrp CSF Danisha Enceph IgG CSF Danisha Enceph IgM CSF Danisha Enceph Intrp CSF W Equine Enceph IgG CSF W Equine Enceph IgM CSF W Equine Enceph Intrp CSF Herpes I IgG Ab CSF Herpes I IgM Ab CSF Herpes II IgM Ab CSF Influenza A Ab CSF Influenza B Ab CSF Lymph choriomen IgG CSF Lymph choriomen IgM CSF Lymph choriomen Int CSF Mumps Virus IgG Ab CSF Mumps Virus IgM Ab CSF Mumps Ab Interpret CSF [place] IgG Ab CSF [place] IgM Ab CSF [place] Interpret CSF VZV IgM Ab CSF [place] IgG Ab CSF [place] IgM Ab Urine Opiates Screen Ur Opiates Confirm Ur Oxycodone Screen U Oxycod/Oxymor Confirm Urine Methadone Screen Ur Methadone Confirm Ur Barbiturates Screen Ur Barbiturate Confirm Ur Phencyclidine Scrn Urine PCP Confirm Ur Amphetamines Screen U Amphetamines Confirm U Benzodiazepines Scrn Ur Benzodiazepine, Qnt Urine Cocaine Screen Urine Cocaine Confirm U Cannabinoids Confirm U Marijuana (THC) Screen Ethyl Alcohol mg/dL Ethyl Alcohol g/dL Herpes Simplex Source HSV II IgG Index HSV I DNA PCR HSV II DNA PCR A/P Narrative A/P Narrative: Assessment: 52-year-old female with no known significant past medical history except obesity and possibly methamphetamine use disorder admitted for sepsis and encephalopathy concerning for bacterial meningitis. #Sepsis possibly secondary to meningitis #Concern for bacterial meningitis #Encephalopathy possibly secondary to meningitis versus sepsis #Moderate hyponatremia #Transaminitis #Possible Methamphetamine use disorder #Obesity Plan -Vancomycin per pharmacy, Ceftriaxone 2 gm Q12 hrs, Ampicillin 2 gm Q4 hrs. -Dexamethasone 10 mg IV Q6 hrs. -Acyclovir 10 mg/kg IV every 8 hours for now, discontinue if CSF HSV PCR results negative. -IV fluid, monitor urine output. -Follow lactic acid until downtrending. -Follow routine CSF analysis, Gram stain and culture, CSF HSV PCR and CSF meningeal encephalitis panel. -Follow blood cultures. -Monitor sodium level and LFTs. -Neurochecks every 4 hours. -N.p.o. for now due to aspiration risk. -DVT prophylaxis: Lovenox Time Spent With Patient Time: Total time spent is greater than 50% in coordination of care (as documented) at patient's floor/unit and/or counseling patient:
[2022-04-11 18:50] LABS: Glucose,CSF 51 mg/dL (40-70)
[2022-04-11 19:10] LABS: Appearance,CSF Hazy; Lymphocytes,CSF 33 % (28-96); Monocytes,CSF 28 % (16-56); Neutrophils,CSF 39 % (0-7); Nucleated Cells,CSF 3687 /cumm (0-5); Red Blood Cell,CSF 6000 /cumm (0-1)
[2022-04-11] MEDS ORDERED: AMPICILLIN SODIUM 2 GM VIAL IV SCH (19:31)
[2022-04-11] MEDS ORDERED: ACYCLOVIR SODIUM 500 MG VIAL IV SCH (19:31)
[2022-04-11] MEDS ORDERED: SENNOSIDES 1 TABLET PO PRN (19:31)
[2022-04-11] MEDS ORDERED: LACTULOSE 20 GM/30 ML ORAL.SOL PO PRN (19:31)
[2022-04-11] MEDS ORDERED: VANCOMYCIN PER PHARMACY IV SCH (19:31)
[2022-04-11] MEDS ORDERED: HYDROcodone/APAP 5/325MG TABLET PO PRN (19:31)
[2022-04-11] MEDS ORDERED: ACETAMINOPHEN 325 MG TABLET PO PRN (19:31)
[2022-04-11] MEDS ORDERED: ONDANSETRON 4 MG/2 ML VIAL IV PRN (19:31)
[2022-04-11] MEDS: DOCUSATE SODIUM 100 MG CAPSULE PO SCH (20:25)
[2022-04-11] MEDS: 0.9 % SODIUM CHLORIDE 1,000 ML IV SCH (20:25)
[2022-04-11] MEDS: 0.9 % SODIUM CHLORIDE 10 ML SYRINGE IV SCH (20:26)
[2022-04-11 20:48] LABS: ALT/SGPT 64 U/L (<40); AST/SGOT 108 U/L (<32); Albumin 1.9 gm/dL (3.2-5.2); Albumin/Globulin Ratio 0.5 (1.0-2.3); Alkaline Phosphatase 233 U/L (39-117); Bilirubin,Direct 0.6 mg/dL (<0.3); Bilirubin,Total 0.9 mg/dL (0.1-1.0); Blood Urea Nitrogen 14 mg/dL (6-20); Calcium 7.3 mg/dL (8.6-10.4); Carbon Dioxide 21 mmol/L (22-30); Chloride 93 mmol/L (96-108); Globulin 4.1 gm/dL (2.2-3.7); Glomerular Filtration Rate 103; Glucose 112 mg/dL (70-105); Lactate Dehydrogenase 688 U/L (135-225); Phosphorous 2.7 mg/dL (2.5-4.5); Triglycerides 293 mg/dL (<150); Uric Acid 2.4 mg/dL (2.5-8.0)
[2022-04-11] MEDS: AMPICILLIN SODIUM 2 GM in 0.9 % SODIUM CHLORIDE 100 ML IV SCH (20:55)
[2022-04-11] MEDS: ACETAMINOPHEN 1,000 MG/100 ML BAG IV PRN (21:21)
[2022-04-11] MEDS: SODIUM CHLORIDE 0.9% IV SCH (22:13)
[2022-04-11] MEDS: ACYCLOVIR SODIUM IV SCH (22:13)
[2022-04-11] MEDS: HYDROmorphone 0.5 MG/0.5 ML SYRINGE IV PRN (22:26)
[2022-04-11] MEDS: DEXAMETHASONE 10 MG/ML VIAL IV SCH (23:50)
[2022-04-12] MEDS: AMPICILLIN SODIUM 2 GM in 0.9 % SODIUM CHLORIDE 100 ML IV SCH ×3 (00:17→08:12)
[2022-04-12] MEDS: ACYCLOVIR SODIUM IV SCH (04:34)
[2022-04-12] MEDS: DEXAMETHASONE 10 MG/ML VIAL IV SCH (04:34)
[2022-04-12] MEDS: SODIUM CHLORIDE 0.9% IV SCH (04:34)
[2022-04-12] MEDS: 0.9 % SODIUM CHLORIDE 1,000 ML IV SCH ×3 (04:34→16:02)
[2022-04-12] MEDS: VANCOMYCIN 1,000 MG in 0.9 % SODIUM CHLORIDE 250 ML IV SCH ×2 (05:33→17:22)
[2022-04-12] MEDS: 0.9 % SODIUM CHLORIDE 10 ML SYRINGE IV SCH ×3 (05:33→20:29)
[2022-04-12 06:59] LABS: ALT/SGPT 53 U/L (<40); AST/SGOT 89 U/L (<32); Albumin/Globulin Ratio 0.5 (1.0-2.3); Alkaline Phosphatase 218 U/L (39-117); Bilirubin,Direct 0.3 mg/dL (<0.3); Bilirubin,Total 0.5 mg/dL (0.1-1.0); Blood Urea Nitrogen 17 mg/dL (6-20); Calcium 7.5 mg/dL (8.6-10.4); Carbon Dioxide 22 mmol/L (22-30); Chloride 101 mmol/L (96-108); Globulin 3.9 gm/dL (2.2-3.7); Glomerular Filtration Rate 118; Glucose 137 mg/dL (70-105); Lactate Dehydrogenase 633 U/L (135-225); Phosphorous 3.3 mg/dL (2.5-4.5); Triglycerides 251 mg/dL (<150); Uric Acid 2.4 mg/dL (2.5-8.0)
[2022-04-12] MEDS: ACETAMINOPHEN 1,000 MG/100 ML BAG IV PRN ×2 (07:10→19:20)
[2022-04-12 07:28] LABS: Basophils # (Auto) 0.05 K/mcL (0.00-0.30); Basophils % (Auto) 0.3 % (0.0-2.0); Eosinophils # (Auto) 0.07 K/mcL (0.00-0.70); Eosinophils % (Auto) 0.4 % (0.0-7.0); Hematocrit 32.9 % (34.1-44.9); Hemoglobin 10.9 g/dL (11.2-15.7); Lymphocytes % (Auto) 4.6 % (15.5-49.0); Mean Cell Volume 83.1 fL (80.0-100.0); Mean Corpuscular HGB Conc 33.1 g/dL (31.0-36.0); Mean Platelet Volume 11.4 fL (8.8-12.5); Monocytes # (Auto) 0.45 K/mcL (0.10-0.90); Monocytes % (Auto) 2.3 % (1.0-12.0); Neutrophils % (Auto) 91.5 % (38.0-78.0); Platelet Count 154 K/mcL (140-440); RBC 3.96 M/mcL (3.59-5.38); Red Cell Distribution Width 14.7 % (11.5-14.5); WBC 19.7 K/mcL (4.5-11.0)
[2022-04-12] MEDS: HYDROmorphone 0.5 MG/0.5 ML SYRINGE IV PRN ×4 (08:23→23:26)
[2022-04-12] MEDS: ENOXAPARIN 40 MG/0.4 ML SYRINGE SQ SCH (08:30)
[2022-04-12] MEDS: DOCUSATE SODIUM 100 MG CAPSULE PO SCH ×2 (08:38→19:43)
[2022-04-12] MEDS ORDERED: cefTRIAXone 2 GM in DEXTROSE 5% IN WATER 50 ML IV SCH (09:00)
--- NOTE | 2022-04-12 10:07 | Internal Med Progress Note ---
SUBJECTIVE Subjective Patient information: Note initiated : 04/12/22 at 10:03 am Service Date, if different from initiated Date: [] Patient: Aide Jerez 52 y/o F admitted on 04/11/22 for AMS, Weakness, Fever. Chief Complaint: [] Interval history: Ms. Jerez is a 52 year old female with no significant past medical history who presented to the emergency department with confusion and fevers. The patient presented with her son who lives with her. The patient is unable to provide a history due to encephalopathy therefore the history was taken from her son who said that she had been sick for 1 to 2 weeks.. She initially complained of diffuse muscle aches and was seen in the emergency department about a week prior to admission complaining of lower back pain and pelvic pain. She was discharged to home, a CT of the lumbar spine did not show any acute changes to explain her symptoms. The patient presented to the emergency departm ent again on 04/10/2022 which is the day prior to admission complaining of body aches, fevers and diarrhea. At that time was found to have a sodium level of 125 which was attributed to a viral syndrome. The patient was discharged home then presented on the day of admission with fevers, tachycardia, tachypnea, leukocytosis and a lactic acid level of 2.4. The patient was started on broad- spectrum antibiotics and IV fluid. Sepsis work-up included urinalysis which was not suspicious for UTI, chest x-ray did not show any pulmonary infiltrates. A lumbar puncture was performed by radiology and per report purulent cerebrospinal fluid was drained raising concern for bacterial meningitis. Additionally, the patient did have a UDS in the ED which was positive for amphetamines. It is unclear if the patient has a history of IV drug use. 04/12 Fevers resolved overnight after the patient was started on antibiotics. White blood cell count has increased, likely due to Decadron. Lactic acid trended back to normal. Hyponatremia resolved. LFTs improving. The CSF fluid analysis was consistent with bacterial meningitis, cerebral spinal culture growing Staph aureus with antibiotic sensitivities pending, 1 out of 2 blood cultures positive for gram-positive cocci. Herpes simplex virus PCR pending. Continuing vancomycin IV dosed by pharmacy and ceftriaxone. Discontinued ampicillin as CSF growing Staph aureus and that will be covered sufficiently by vancomycin if it is MRSA or ceftriaxone if it is MSSA. Also discontinued acyclovir as HSV encephalitis is very unlikely. The patient's mental status has improved somewhat since admission. Physical exam Head: Atraumatic, normal inspection. Eyes: normal appearance, no scleral icterus. Neck: full ROM Respiratory: Tachypnea, no respiratory distress. Cardiovascular: Regular tachycardia, S1, S2. GI/Abdominal: soft, nontender, no guarding. Extremities: full range of motion, nontender. Neurological: Positive for Brudzinski's sign, sensory and motor intact. Psychiatric: Impaired cognition Skin: warm, normal color Constitutional Vitals: Vital Signs Temp Pulse Resp BP Pulse Ox O2 Del Method O2 Flow Rate 99.4 F H 88 15 94/63 98 Room Air 2 04/12/22 08:02 04/12/22 08:02 04/12/22 08:53 04/12/22 08:02 04/12/22 08:53 04/12/22 08:53 04/12/22 06:00 Period Temp Pulse Resp BP Sys/Gonzales Pulse Ox O2 Del Method O2 Flow Rate Last 24 Hr 97.8 F-103.8 F 83-120 15-34 94-172/62-114 90-100 Nasal Cannula-Room Air 2-2 Intake and Output 04/11/22 04/12/22 04/12/22 19:59 03:59 11:59 Intake Total 2400 450 1750 Output Total 800 275 Balance 2400 -350 1475 Weight 88.961 kg Intake & Output: Intake & Output 04/11/22 04/12/22 04/12/22 19:59 03:59 11:59 Intake Total 2400 450 1750 Output Total 800 275 Balance 2400 -350 1475 Weight 88.961 kg Intake: IV 2400 450 1750 Sodium Chloride 0.9% 1,000 ml @ 2000 1000 125 mls/hr IV .Q8H [facility] Rx#: [id number] Zovirax 700 mg In Sodium 150 150 Chloride 0.9% 150 ml @ 150 mls/ hr IV Q8H [facility] Rx#:[id number] Ampicillin 2 gm In Sodium 200 200 Chloride 0.9% 100 ml @ 100 mls/ hr IV Q4H [facility] Rx#:[id number] Zosyn 3.375 gm In Dextrose 5% 50 in Water 50 ml @ 100 mls/hr IV ONCE ONE Rx#:[id number] Vancomycin 1,000 mg In Sodium 250 250 Chloride 0.9% 250 ml @ 250 mls/ hr IV Q12H [facility] Rx#:[id number] Rocephin 2 gm In Dextrose 5% in 50 Water 50 ml @ 100 mls/hr IV Q12H [facility] Rx#:[id number] Output: Urine Catheter Amount 800 275 Other: Urine Appearance Clear Clear Uretheral ([place]) Clear Urine Color Yellow Dark Yellow Uretheral ([place]) Dark Yellow Urine Odor Normal Uretheral ([place]) Normal OBJ DATA Labs 04/12/22 05:15 04/12/22 05:20 Labs: Abnormal Lab Results 04/12/22 04/12/22 04/12/22 05:20 05:15 05:15 WBC 19.7 H Hgb 10.9 L Hct 32.9 L RDW 14.7 H Immature Gran % (Auto) 0.9 H Neut % (Auto) 91.5 H Lymph % (Auto) 4.6 L Lymph # (Auto) 0.90 L Immature Gran # 0.18 H Absolute Neutrophils 18.07 H POC VBG pH POC VBG pCO2 at Temp VBG Lactic Acid POC Sodium Sodium Chloride Carbon Dioxide Creatinine 0.4 L Glucose 137 H POC Glucose Uric Acid 2.4 L Calcium 7.5 L POC WB Ioniz Calcium Direct Bilirubin 0.3 H GGT 133 H AST 89 H ALT 53 H Alkaline Phosphatase 218 H Lactate Dehydrogenase 633 H Albumin 2.0 L Globulin 3.9 H Albumin/Globulin Ratio 0.5 L Triglycerides 251 H Procalcitonin 3.24 H Urine Protein Urine Occult Blood Urine Urobilinogen Urine RBC Urine WBC Urine Mucus CSF RBC CSF Total Nucleated Auto CSF Neutrophils CSF Total Protein Ur Amphetamines Screen 04/11/22 04/11/22 04/11/22 19:46 18:12 17:25 WBC Hgb Hct RDW Immature Gran % (Auto) Neut % (Auto) Lymph % (Auto) Lymph # (Auto) Immature Gran # Absolute Neutrophils POC VBG pH POC VBG pCO2 at Temp VBG Lactic Acid 2.2 H POC Sodium Sodium 125 L Chloride 93 L Carbon Dioxide 21 L Creatinine Glucose 112 H POC Glucose Uric Acid 2.4 L Calcium 7.3 L POC WB Ioniz Calcium Direct Bilirubin 0.6 H GGT 153 H AST 108 H ALT 64 H Alkaline Phosphatase 233 H Lactate Dehydrogenase 688 H Albumin 1.9 L Globulin 4.1 H Albumin/Globulin Ratio 0.5 L Triglycerides 293 H Procalcitonin Urine Protein Urine Occult Blood Urine Urobilinogen Urine RBC Urine WBC Urine Mucus CSF RBC 6000 H CSF Total Nucleated Auto 3687 H CSF Neutrophils 39 H CSF Total Protein 96.0 H Ur Amphetamines Screen 04/11/22 04/11/22 04/11/22 14:11 14:11 14:00 WBC Hgb Hct RDW Immature Gran % (Auto) Neut % (Auto) Lymph % (Auto) Lymph # (Auto) Immature Gran # Absolute Neutrophils POC VBG pH POC VBG pCO2 at Temp VBG Lactic Acid POC Sodium Sodium Chloride Carbon Dioxide Creatinine Glucose POC Glucose Uric Acid Calcium POC WB Ioniz Calcium Direct Bilirubin GGT AST ALT Alkaline Phosphatase Lactate Dehydrogenase Albumin Globulin Albumin/Globulin Ratio Triglycerides Procalcitonin 3.42 H Urine Protein 100 A Urine Occult Blood Large A Urine Urobilinogen 4.0 A Urine RBC 71 H Urine WBC 22 H Urine Mucus Few A CSF RBC CSF Total Nucleated Auto CSF Neutrophils CSF Total Protein Ur Amphetamines Screen Suspect positive A 04/11/22 04/11/22 04/11/22 14:00 14:00 13:59 WBC 17.1 H Hgb Hct RDW 14.6 H Immature Gran % (Auto) 0.9 H Neut % (Auto) 94.3 H Lymph % (Auto) 2.2 L Lymph # (Auto) 0.38 L Immature Gran # 0.15 H Absolute Neutrophils 16.07 H POC VBG pH POC VBG pCO2 at Temp VBG Lactic Acid POC Sodium 129 L Sodium Chloride Carbon Dioxide Creatinine Glucose POC Glucose 161 H Uric Acid Calcium POC WB Ioniz Calcium 0.96 L Direct Bilirubin 0.5 H GGT AST 96 H ALT 60 H Alkaline Phosphatase 239 H Lactate Dehydrogenase Albumin 2.1 L Globulin 4.2 H Albumin/Globulin Ratio Triglycerides Procalcitonin Urine Protein Urine Occult Blood Urine Urobilinogen Urine RBC Urine WBC Urine Mucus CSF RBC CSF Total Nucleated Auto CSF Neutrophils CSF Total Protein Ur Amphetamines Screen 04/11/22 13:52 WBC Hgb Hct RDW Immature Gran % (Auto) Neut % (Auto) Lymph % (Auto) Lymph # (Auto) Immature Gran # Absolute Neutrophils POC VBG pH 7.50 H POC VBG pCO2 at Temp 30.8 L VBG Lactic Acid 2.4 H POC Sodium Sodium Chloride Carbon Dioxide Creatinine Glucose POC Glucose Uric Acid Calcium POC WB Ioniz Calcium Direct Bilirubin GGT AST ALT Alkaline Phosphatase Lactate Dehydrogenase Albumin Globulin Albumin/Globulin Ratio Triglycerides Procalcitonin Urine Protein Urine Occult Blood Urine Urobilinogen Urine RBC Urine WBC Urine Mucus CSF RBC CSF Total Nucleated Auto CSF Neutrophils CSF Total Protein Ur Amphetamines Screen Meds: Medications Hydrocodone Bitart/Acetaminophen (Hydrocodone/Apap 5/325mg Tablet) 1 tab PO Q4HP PRN; Protocol PRN Reason: Per Pain Protocol Dexamethasone (Dexamethasone 10 Mg/Ml Vial) 10 mg IV Q6H [facility] Stop: 04/15/22 22:59 Last Admin: 04/12/22 04:34 Dose: 10 mg Docusate Sodium (Docusate Sodium 100 Mg Capsule) 100 mg PO BID [facility] Last Admin: 04/12/22 08:38 Dose: Not Given Enoxaparin Sodium (Enoxaparin 40 Mg/0.4 Ml Syringe) 40 mg SQ DAILY [facility] Last Admin: 04/12/22 08:30 Dose: 40 mg Hydromorphone HCl (Hydromorphone 0.5 Mg/0.5 Ml Syringe) 0.5 mg IV Q2HP PRN; Protocol PRN Reason: Per Pain Protocol Last Admin: 04/12/22 08:23 Dose: 0.5 mg Sodium Chloride (Sodium Chloride 0.9%) 1,000 mls @ 125 mls/hr IV .Q8H [facility] Last Admin: 04/12/22 04:34 Dose: 125 mls/hr Ceftriaxone Sodium 2 gm/ (Dextrose) 50 mls @ 100 mls/hr IV Q12H [facility]; Protocol Last Infusion: 04/12/22 09:25 Dose: Infused Vancomycin HCl 1,000 mg/ (Sodium Chloride) 250 mls @ 250 mls/hr IV Q12H [facility] Last Infusion: 04/12/22 06:42 Dose: Infused Ampicillin Sodium 2 gm/ Sodium (Chloride) 100 mls @ 100 mls/hr IV Q4H [facility] Last Infusion: 04/12/22 09:15 Dose: Infused Acyclovir Sodium 700 mg/ (Sodium Chloride) 150 mls @ 150 mls/hr IV Q8H [facility] Last Infusion: 04/12/22 05:55 Dose: Infused Acetaminophen (Ofirmev) 1,000 mg in 100 mls @ 200 mls/hr IV Q8HP PRN; Protocol PRN Reason: PAIN/FEVER > 101 Last Infusion: 04/12/22 07:45 Dose: Infused Lactulose (Lactulose 20 Gm/30 Ml Oral.Suad) 10 gm PO DAILYP PRN PRN Reason: Constipation Lorazepam (Lorazepam 2 Mg/Ml Vial) 0.5 mg IV Q2HP PRN PRN Reason: ANXIETY/SEDATION Ondansetron HCl (Ondansetron 4 Mg/2 Ml Vial) 4 mg IV Q4HP PRN; Protocol PRN Reason: Nausea And Vomiting Senna (Sennosides 1 Tablet) 2 tab PO HSP PRN PRN Reason: Constipation Sodium Chloride (0.9 % Sodium Chloride 10 Ml Syringe) 10 ml IV Q8 [facility] Last Admin: 04/12/22 05:33 Dose: 10 ml Vancomycin HCl (Vancomycin Per Pharmacy) 1 order IV UD [facility]; Protocol A/P Narrative A/P Narrative: Assessment: 52-year-old female with no known significant past medical history except obesity and possibly methamphetamine use disorder admitted for sepsis secondary to Staphylococcus aureus meningitis and possible gram-positive bacteremia. #Sepsis secondary to Staphylococcus aureus meningitis #Encephalopathy secondary to meningitis #1 out of 2 blood cultures positive for gram-positive cocci #Transaminitis #Possible Methamphetamine use disorder #Obesity Plan -Continue vancomycin per pharmacy, Ceftriaxone 2 gm Q12 hrs. -Discontinue Ampicillin 2 gm Q4 hrs. -Dexamethasone 10 mg IV Q6 hrs. -Discontinue acyclovir IV as HSV encephalitis is unlikely. -IV fluid, monitor urine output. -Follow CSF culture antibiotic sensitivities CSF HSV PCR and CSF meningeal encephalitis panel. -Follow blood cultures: currently 1/2 bottles growing gram-positive cocci. -Renal CBC, function and LFTs. -Neurochecks every 4 hours. -N.p.o. for now due to aspiration risk. -Tele-infectious disease consulted for bacterial meningitis management recommendations. -DVT prophylaxis: Lovenox -CODE STATUS: Full -Disposition: Will depend on clinical course. The patient is medically stable for discharge she may need rehab, potentially high intensity rehab. Time Spent With Patient Time: Total time spent is greater than 50% in coordination of care (as documented) at patient's floor/unit and/or counseling patient:
--- NOTE | 2022-04-12 12:22 | Infectious Disease Consult ---
Telemedicine Intake Location of Provider: Home Patient location: Intensive Care Unit Details: Unable to obtain consent due to patient's mental status HPI Date of Consult Consult Date: 04/12/22 Primary Care Provider: PCP No Consult Narrative Reason for consult: Meningitis History of present illness: 52-year-old woman with unknown past medical history presented to the emergency room confusion, fevers. History obtained from the chart as patient is unable to find history Patient's son who live with the patient reported to the ER physician that patient has had fevers for the last week or so has been complaining of diffuse muscle aches but no specific location of pain. The patient is otherwise healthy she does not take any medications. The patient was seen in the emergency department at the beginning of the month for lower back and pelvis pain. She was prescribed muscle relaxants for this. Patient was seen in the emergency department yesterday her sodium was 125 and viral testing including COVID and influenza was negative. Patient was discharged home but the son states has had a decline in mentation to where she is barely speaking to him. EMS reported that there were seizures the son denies this. The son denies any nausea, vomiting urinary changes he does state that her fever has been up to 104. On admission, CT head was negative. WBC was 19,000. CSF showed 6000 RBC, 3687 WBC, protein 96 glucose of 51. Gram stain was positive for gram-positive cocci in pairs and clusters. Blood and CSF culture is positive for Staph aureus. Susceptibilities pending. Patient has been on acyclovir, ampicillin, vancomycin, ceftriaxone. After discussion with this morning, ampicillin and acyclovir were discontinued. The remainder of the review of systems unable to obtain cc:: CC: Evans Rivera MD [facility] All Active Problems (Updated 04/11/22 @ 18:47 by Mitchel Baer MD) Strain of lumbar region (Acute) Kissing spine of lumbar region (Acute) Viral illness (Acute) Acute hyponatremia (Acute) Meningitis (Acute) Acute hyponatremia (Acute) Sepsis (Acute) Acute alteration in mental status (Acute) Social History smoking status: Current every day smoker MEDS/ALLERGIES Home Medications and Allergies Home Medications Medication Instructions Recorded Confirmed Type cyclobenzaprine 5 mg tablet 5 mg PO TID PRN muscle spasm #15 04/03/22 04/11/22 Rx tabs ketorolac 10 mg tablet 10 mg PO TID 04/11/22 04/11/22 History Allergies Allergy/AdvReac Type Severity Reaction Status Date / Time No Known Drug Allergies Allergy Verified 04/10/22 11:48 Physical Examination Vital Signs Vital signs: Temp Pulse Resp BP Pulse Ox O2 Del Method O2 Flow Rate 97.2 F 81 15 114/67 98 Room Air 2 04/12/22 12:01 04/12/22 11:00 04/12/22 12:01 04/12/22 12:01 04/12/22 12:01 04/12/22 08:53 04/12/22 06:00 Constitutional General appearance: other (Patient is somnolent, in no distress) EENT Eyes pulmonary: nonicteric and other (No conjunctival petechiae) Neck: other Respiratory Effort: normal Cardiovascular Cardiovascular: regular rate and rhythm Gastrointestinal Gastrointestinal: normoactive bowel sounds Extremities Extremities: other (There are bilateral knee edema without erythema or heat. She has unkept nails.) Musculoskeletal Musculoskeletal: no deformities Neurologic Neurological: unable to assess due to mental status Results Laboratory Findings 04/12/22 05:15 04/12/22 05:20 Abnormal lab findings: Abnormal Labs 04/11/22 04/11/22 04/11/22 13:52 13:59 14:00 WBC Hgb Hct RDW Immature Gran % (Auto) Neut % (Auto) Lymph % (Auto) Lymph # (Auto) Immature Gran # Absolute Neutrophils POC VBG pH 7.50 H POC VBG pCO2 at Temp 30.8 L VBG Lactic Acid 2.4 H POC Sodium 129 L Sodium Chloride Carbon Dioxide Creatinine Glucose POC Glucose 161 H Uric Acid Calcium POC WB Ioniz Calcium 0.96 L Direct Bilirubin 0.5 H GGT AST 96 H ALT 60 H Alkaline Phosphatase 239 H Lactate Dehydrogenase Albumin 2.1 L Globulin 4.2 H Albumin/Globulin Ratio Triglycerides Procalcitonin Urine Protein Urine Occult Blood Urine Urobilinogen Urine RBC Urine WBC Urine Mucus CSF RBC CSF Total Nucleated Auto CSF Neutrophils CSF Total Protein Ur Amphetamines Screen 04/11/22 04/11/22 04/11/22 14:00 14:00 14:11 WBC 17.1 H Hgb Hct RDW 14.6 H Immature Gran % (Auto) 0.9 H Neut % (Auto) 94.3 H Lymph % (Auto) 2.2 L Lymph # (Auto) 0.38 L Immature Gran # 0.15 H Absolute Neutrophils 16.07 H POC VBG pH POC VBG pCO2 at Temp VBG Lactic Acid POC Sodium Sodium Chloride Carbon Dioxide Creatinine Glucose POC Glucose Uric Acid Calcium POC WB Ioniz Calcium Direct Bilirubin GGT AST ALT Alkaline Phosphatase Lactate Dehydrogenase Albumin Globulin Albumin/Globulin Ratio Triglycerides Procalcitonin 3.42 H Urine Protein Urine Occult Blood Urine Urobilinogen Urine RBC Urine WBC Urine Mucus CSF RBC CSF Total Nucleated Auto CSF Neutrophils CSF Total Protein Ur Amphetamines Screen Suspect positive A 04/11/22 04/11/22 04/11/22 14:11 17:25 18:12 WBC Hgb Hct RDW Immature Gran % (Auto) Neut % (Auto) Lymph % (Auto) Lymph # (Auto) Immature Gran # Absolute Neutrophils POC VBG pH POC VBG pCO2 at Temp VBG Lactic Acid 2.2 H POC Sodium Sodium Chloride Carbon Dioxide Creatinine Glucose POC Glucose Uric Acid Calcium POC WB Ioniz Calcium Direct Bilirubin GGT AST ALT Alkaline Phosphatase Lactate Dehydrogenase Albumin Globulin Albumin/Globulin Ratio Triglycerides Procalcitonin Urine Protein 100 A Urine Occult Blood Large A Urine Urobilinogen 4.0 A Urine RBC 71 H Urine WBC 22 H Urine Mucus Few A CSF RBC 6000 H CSF Total Nucleated Auto 3687 H CSF Neutrophils 39 H CSF Total Protein 96.0 H Ur Amphetamines Screen 04/11/22 04/12/22 04/12/22 19:46 05:15 05:15 WBC 19.7 H Hgb 10.9 L Hct 32.9 L RDW 14.7 H Immature Gran % (Auto) 0.9 H Neut % (Auto) 91.5 H Lymph % (Auto) 4.6 L Lymph # (Auto) 0.90 L Immature Gran # 0.18 H Absolute Neutrophils 18.07 H POC VBG pH POC VBG pCO2 at Temp VBG Lactic Acid POC Sodium Sodium 125 L Chloride 93 L Carbon Dioxide 21 L Creatinine Glucose 112 H POC Glucose Uric Acid 2.4 L Calcium 7.3 L POC WB Ioniz Calcium Direct Bilirubin 0.6 H GGT 153 H AST 108 H ALT 64 H Alkaline Phosphatase 233 H Lactate Dehydrogenase 688 H Albumin 1.9 L Globulin 4.1 H Albumin/Globulin Ratio 0.5 L Triglycerides 293 H Procalcitonin 3.24 H Urine Protein Urine Occult Blood Urine Urobilinogen Urine RBC Urine WBC Urine Mucus CSF RBC CSF Total Nucleated Auto CSF Neutrophils CSF Total Protein Ur Amphetamines Screen 04/12/22 05:20 WBC Hgb Hct RDW Immature Gran % (Auto) Neut % (Auto) Lymph % (Auto) Lymph # (Auto) Immature Gran # Absolute Neutrophils POC VBG pH POC VBG pCO2 at Temp VBG Lactic Acid POC Sodium Sodium Chloride Carbon Dioxide Creatinine 0.4 L Glucose 137 H POC Glucose Uric Acid 2.4 L Calcium 7.5 L POC WB Ioniz Calcium Direct Bilirubin 0.3 H GGT 133 H AST 89 H ALT 53 H Alkaline Phosphatase 218 H Lactate Dehydrogenase 633 H Albumin 2.0 L Globulin 3.9 H Albumin/Globulin Ratio 0.5 L Triglycerides 251 H Procalcitonin Urine Protein Urine Occult Blood Urine Urobilinogen Urine RBC Urine WBC Urine Mucus CSF RBC CSF Total Nucleated Auto CSF Neutrophils CSF Total Protein Ur Amphetamines Screen Microbiology: Microbiology 04/11/22 17:25 Cerebral Spinal Fluid - Cerebral Spinal Fluid Gram Stain - Preliminary 04/11/22 17:25 Cerebral Spinal Fluid - Cerebral Spinal Fluid CSF Culture - Preliminary Staphylococcus aureus 04/11/22 14:35 Blood Blood Culture - Preliminary Gram positive cocci 04/11/22 22:21 Nose - Both Right and Left MRSA (PCR) - Final A/P Narrative A/P Narrative: 52-year-old with no known past medical history presents now with fever, altered mentation with amphetamine positive on drug screen. There is no evidence of IV drug abuse on physical exam. Patient have Staph aureus meningitis and bacteremia. Staph aureus is a unusual pathogen for meningitis without previous [employer] procedures. I would evaluate for septic embolic event such as endocarditis and brain septic emboli as well as osteomyelitis of the lumbar spine as patient previously presented with low back pain. Continue patient on vancomycin. Will change ceftriaxone to nafcillin. Will change antibiotics as culture results are back. Patient will need an echocardiogram, head MRI with and lumbar spine MRI with and without contrast Thank you for involving [place] [facility] in the patient's care. We will follow along with you Time Spent With Patient Time: Total time spent is greater than 50% in coordination of care (as documented) at patient's floor/unit and/or counseling patient:
[2022-04-12] MEDS: NAFCILLIN 2 GM in 0.9 % SODIUM CHLORIDE 50 ML IV SCH ×3 (13:17→20:30)
--- NOTE | 2022-04-12 13:18 | Internal Med Progress Note ---
SUBJECTIVE Subjective Patient information: Note initiated : 04/12/22 at 1:06 pm Service Date, if different from initiated Date: [] Patient: Aide Jerez 52 y/o F admitted on 04/11/22 for AMS, Weakness, Fever. Chief Complaint: [] Interval history: Ms. Jerez is a 52 year old female with no significant past medical history who presented to the emergency department with confusion and fevers. The patient presented with her son who lives with her. The patient is unable to provide a history due to encephalopathy therefore the history was taken from her son who said that she had been sick for 1 to 2 weeks.. She initially complained of diffuse muscle aches and was seen in the emergency department about a week prior to admission complaining of lower back pain and pelvic pain. She was discharged to home, a CT of the lumbar spine did not show any acute changes to explain her symptoms. The patient presented to the emergency department again on 04/10/2022 which is the day prior to admission complaining of body aches, fevers and diarrhea. At that time was found to have a sodium level of 125 which was attributed to a viral syndrome. The patient was discharged home then presented on the day of admission with fevers, tachycardia, tachypnea, leukocytosis and a lactic acid level of 2.4. The patient was started on broad- spectrum antibiotics and IV fluid. Sepsis work-up included urinalysis which was not suspicious for UTI, chest x-ray did not show any pulmonary infiltrates. A lumbar puncture was performed by radiology and per report purulent cerebrospinal fluid was drained raising concern for bacterial meningitis. Additionally, the patient did have a UDS in the ED which was positive for amphetamines. It is unclear if the patient has a history of IV drug use. 04/12 Fevers resolved overnight after the patient was started on antibiotics. White blood cell count has increased, likely due to Decadron. Lactic acid trended back to normal. Hyponatremia resolved. LFTs improving. The CSF fluid analysis was consistent with bacterial meningitis, cerebral spinal culture growing Staph aureus with antibiotic sensitivities pending, 1 out of 2 blood cultures positive for gram-positive cocci. Herpes simplex virus PCR pending. Continuing vancomycin IV dosed by pharmacy and ceftriaxone. Discontinued ampicillin as CSF growing Staph aureus and that will be covered sufficiently by vancomycin if it is MRSA or ceftriaxone if it is MSSA. Also discontinued acyclovir as HSV encephalitis is very unlikely. The patient's mental status has improved somewhat since admission. 04/13 Review of Systems: denies headache/fever/chills/nausea/vomiting/chest or abdominal pain/cough/dyspnea/diarrhea. Otherwise see above. PHYSICAL EXAM: General: Alert, Awake, No acute Distress Eyes/N/T: EOMI, no scleral icterus, Head/Neck: neck supple, full ROM, CV: RRR, No murmurs, Pulm: Clear b/l, no wheezing/rhonchi/rales, no respiratory distress Abd: soft, nontender, +BS x4 Ext: no clubbing/cyanosis/edema, nontender Neuro: Alert, no focal deficits, moves all extremities, Psychiatric: Skin: warm/dry, normal color Constitutional Vitals: Vital Signs Temp Pulse Resp BP Pulse Ox O2 Del Method O2 Flow Rate 97.2 F 81 15 114/67 98 Room Air 2 04/12/22 12:01 04/12/22 11:00 04/12/22 12:01 04/12/22 12:01 04/12/22 12:01 04/12/22 08:53 04/12/22 06:00 Period Temp Pulse Resp BP Sys/Gonzales Pulse Ox O2 Del Method O2 Flow Rate Last 24 Hr 97.2 F-103.8 F 78-120 13-34 94-172/62-114 90-100 Nasal Cannula-Room Air 2-2 Intake and Output 04/12/22 04/12/22 04/12/22 03:59 11:59 19:59 Intake Total 450 2230 Output Total 800 475 Balance -350 1755 Intake & Output: Intake & Output 04/12/22 04/12/22 04/12/22 03:59 11:59 19:59 Intake Total 450 2230 Output Total 800 475 Balance -350 1755 Intake: IV 450 2230 Sodium Chloride 0.9% 1,000 ml @ 1480 125 mls/hr IV .Q8H [facility] Rx#: [id number] Zovirax 700 mg In Sodium 150 150 Chloride 0.9% 150 ml @ 150 mls/ hr IV Q8H [facility] Rx#:[id number] Ampicillin 2 gm In Sodium 200 200 Chloride 0.9% 100 ml @ 100 mls/ hr IV Q4H [facility] Rx#:[id number] Vancomycin 1,000 mg In Sodium 250 Chloride 0.9% 250 ml @ 250 mls/ hr IV Q12H [facility] Rx#:[id number] Rocephin 2 gm In Dextrose 5% in 50 Water 50 ml @ 100 mls/hr IV Q12H [facility] Rx#:[id number] Output: Urine Catheter Amount 800 475 Other: Urine Appearance Clear Uretheral ([place]olina) Clear Urine Color Yellow Brown Uretheral (Molina) Dark Yellow Urine Odor Normal Uretheral ([place]ina) Normal OBJ DATA Labs 04/12/22 05:15 04/12/22 05:20 Labs: Abnormal Lab Results 04/12/22 04/12/22 04/12/22 05:20 05:15 05:15 WBC 19.7 H Hgb 10.9 L Hct 32.9 L RDW 14.7 H Immature Gran % (Auto) 0.9 H Neut % (Auto) 91.5 H Lymph % (Auto) 4.6 L Lymph # (Auto) 0.90 L Immature Gran # 0.18 H Absolute Neutrophils 18.07 H POC VBG pH POC VBG pCO2 at Temp VBG Lactic Acid POC Sodium Sodium Chloride Carbon Dioxide Creatinine 0.4 L Glucose 137 H POC Glucose Uric Acid 2.4 L Calcium 7.5 L POC WB Ioniz Calcium Direct Bilirubin 0.3 H GGT 133 H AST 89 H ALT 53 H Alkaline Phosphatase 218 H Lactate Dehydrogenase 633 H Albumin 2.0 L Globulin 3.9 H Albumin/Globulin Ratio 0.5 L Triglycerides 251 H Procalcitonin 3.24 H Urine Protein Urine Occult Blood Urine Urobilinogen Urine RBC Urine WBC Urine Mucus CSF RBC CSF Total Nucleated Auto CSF Neutrophils CSF Total Protein Ur Amphetamines Screen 04/11/22 04/11/22 04/11/22 19:46 18:12 17:25 WBC Hgb Hct RDW Immature Gran % (Auto) Neut % (Auto) Lymph % (Auto) Lymph # (Auto) Immature Gran # Absolute Neutrophils POC VBG pH POC VBG pCO2 at Temp VBG Lactic Acid 2.2 H POC Sodium Sodium 125 L Chloride 93 L Carbon Dioxide 21 L Creatinine Glucose 112 H POC Glucose Uric Acid 2.4 L Calcium 7.3 L POC WB Ioniz Calcium Direct Bilirubin 0.6 H GGT 153 H AST 108 H ALT 64 H Alkaline Phosphatase 233 H Lactate Dehydrogenase 688 H Albumin 1.9 L Globulin 4.1 H Albumin/Globulin Ratio 0.5 L Triglycerides 293 H Procalcitonin Urine Protein Urine Occult Blood Urine Urobilinogen Urine RBC Urine WBC Urine Mucus CSF RBC 6000 H CSF Total Nucleated Auto 3687 H CSF Neutrophils 39 H CSF Total Protein 96.0 H Ur Amphetamines Screen 04/11/22 04/11/22 04/11/22 14:11 14:11 14:00 WBC Hgb Hct RDW Immature Gran % (Auto) Neut % (Auto) Lymph % (Auto) Lymph # (Auto) Immature Gran # Absolute Neutrophils POC VBG pH POC VBG pCO2 at Temp VBG Lactic Acid POC Sodium Sodium Chloride Carbon Dioxide Creatinine Glucose POC Glucose Uric Acid Calcium POC WB Ioniz Calcium Direct Bilirubin GGT AST ALT Alkaline Phosphatase Lactate Dehydrogenase Albumin Globulin Albumin/Globulin Ratio Triglycerides Procalcitonin 3.42 H Urine Protein 100 A Urine Occult Blood Large A Urine Urobilinogen 4.0 A Urine RBC 71 H Urine WBC 22 H Urine Mucus Few A CSF RBC CSF Total Nucleated Auto CSF Neutrophils CSF Total Protein Ur Amphetamines Screen Suspect positive A 04/11/22 04/11/22 04/11/22 14:00 14:00 13:59 WBC 17.1 H Hgb Hct RDW 14.6 H Immature Gran % (Auto) 0.9 H Neut % (Auto) 94.3 H Lymph % (Auto) 2.2 L Lymph # (Auto) 0.38 L Immature Gran # 0.15 H Absolute Neutrophils 16.07 H POC VBG pH POC VBG pCO2 at Temp VBG Lactic Acid POC Sodium 129 L Sodium Chloride Carbon Dioxide Creatinine Glucose POC Glucose 161 H Uric Acid Calcium POC WB Ioniz Calcium 0.96 L Direct Bilirubin 0.5 H GGT AST 96 H ALT 60 H Alkaline Phosphatase 239 H Lactate Dehydrogenase Albumin 2.1 L Globulin 4.2 H Albumin/Globulin Ratio Triglycerides Procalcitonin Urine Protein Urine Occult Blood Urine Urobilinogen Urine RBC Urine WBC Urine Mucus CSF RBC CSF Total Nucleated Auto CSF Neutrophils CSF Total Protein Ur Amphetamines Screen 04/11/22 13:52 WBC Hgb Hct RDW Immature Gran % (Auto) Neut % (Auto) Lymph % (Auto) Lymph # (Auto) Immature Gran # Absolute Neutrophils POC VBG pH 7.50 H POC VBG pCO2 at Temp 30.8 L VBG Lactic Acid 2.4 H POC Sodium Sodium Chloride Carbon Dioxide Creatinine Glucose POC Glucose Uric Acid Calcium POC WB Ioniz Calcium Direct Bilirubin GGT AST ALT Alkaline Phosphatase Lactate Dehydrogenase Albumin Globulin Albumin/Globulin Ratio Triglycerides Procalcitonin Urine Protein Urine Occult Blood Urine Urobilinogen Urine RBC Urine WBC Urine Mucus CSF RBC CSF Total Nucleated Auto CSF Neutrophils CSF Total Protein Ur Amphetamines Screen Meds: Medications Hydrocodone Bitart/Acetaminophen (Hydrocodone/Apap 5/325mg Tablet) 1 tab PO Q4HP PRN; Protocol PRN Reason: Per Pain Protocol Docusate Sodium (Docusate Sodium 100 Mg Capsule) 100 mg PO BID [facility] Last Admin: 04/12/22 08:38 Dose: Not Given Enoxaparin Sodium (Enoxaparin 40 Mg/0.4 Ml Syringe) 40 mg SQ DAILY [facility] Last Admin: 04/12/22 08:30 Dose: 40 mg Hydromorphone HCl (Hydromorphone 0.5 Mg/0.5 Ml Syringe) 0.5 mg IV Q2HP PRN; Protocol PRN Reason: Per Pain Protocol Last Admin: 04/12/22 08:23 Dose: 0.5 mg Vancomycin HCl 1,000 mg/ (Sodium Chloride) 250 mls @ 250 mls/hr IV Q12H [facility] Last Infusion: 04/12/22 06:42 Dose: Infused Acetaminophen (Ofirmev) 1,000 mg in 100 mls @ 200 mls/hr IV Q8HP PRN; Protocol PRN Reason: PAIN/FEVER > 101 Last Infusion: 04/12/22 07:45 Dose: Infused Sodium Chloride (Sodium Chloride 0.9%) 1,000 mls @ 100 mls/hr IV .Q10H [facility] Last Admin: 04/12/22 10:17 Dose: 100 mls/hr Nafcillin Sodium 2 gm/ Sodium (Chloride) 50 mls @ 100 mls/hr IV Q4H [facility]; Protocol Lactulose (Lactulose 20 Gm/30 Ml Oral.Usad) 10 gm PO DAILYP PRN PRN Reason: Constipation Lorazepam (Lorazepam 2 Mg/Ml Vial) 0.5 mg IV Q2HP PRN PRN Reason: ANXIETY/SEDATION Ondansetron HCl (Ondansetron 4 Mg/2 Ml Vial) 4 mg IV Q4HP PRN; Protocol PRN Reason: Nausea And Vomiting Senna (Sennosides 1 Tablet) 2 tab PO HSP PRN PRN Reason: Constipation Sodium Chloride (0.9 % Sodium Chloride 10 Ml Syringe) 10 ml IV Q8 [facility] Last Admin: 04/12/22 05:33 Dose: 10 ml Vancomycin HCl (Vancomycin Per Pharmacy) 1 order IV UD [facility]; Protocol A/P Narrative A/P Narrative: A: #Bacterial Meningitis (Staph Aureus): #Bacteremia (Staph Aureus): #Endocarditis: #Sepsis: 2/2 above #Encephalopathy: 2/2 above #Transaminitis: #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 -d/c Dexamethasone -Discontinue acyclovir IV as HSV encephalitis is unlikely -IV fluid, monitor urine output. -Follow CSF culture antibiotic sensitivities CSF HSV PCR and CSF meningeal encephalitis panel. -serial BC -echo and MRI Brain and MRI of lumbar pending -Renal CBC, function and LFTs. -Neurochecks every 4 hours. -N.p.o. for now due to aspiration risk. IVF while npo -Disposition: Will depend on clinical course. The patient is medically stable for discharge she may need rehab, potentially high intensity rehab. CM for placement -ppx: Lovenox CODE STATUS: Clinic Licensed Practical Nurse Spent With Patient Time: Total time spent is greater than 50% in coordination of care (as documented) at patient's floor/unit and/or counseling patient:
[2022-04-13] MEDS: NAFCILLIN 2 GM in 0.9 % SODIUM CHLORIDE 50 ML IV SCH ×7 (01:16→23:58)
[2022-04-13] MEDS: 0.9 % SODIUM CHLORIDE 1,000 ML IV SCH ×2 (02:31→10:10)
[2022-04-13] MEDS: ACETAMINOPHEN 1,000 MG/100 ML BAG IV PRN ×3 (03:39→22:49)
[2022-04-13] MEDS: HYDROmorphone 0.5 MG/0.5 ML SYRINGE IV PRN ×4 (04:53→23:06)
[2022-04-13] MEDS: 0.9 % SODIUM CHLORIDE 10 ML SYRINGE IV SCH ×3 (05:29→20:41)
[2022-04-13 06:24] LABS: Basophils # (Auto) 0.03 K/mcL (0.00-0.30); Basophils % (Auto) 0.2 % (0.0-2.0); Eosinophils # (Auto) 0 K/mcL (0.00-0.70); Eosinophils % (Auto) 0 % (0.0-7.0); Hematocrit 34.5 % (34.1-44.9); Hemoglobin 11.2 g/dL (11.2-15.7); Lymphocytes # (Auto) 1.23 K/mcL (1.50-4.80); Lymphocytes % (Auto) 6.6 % (15.5-49.0); Mean Cell Volume 83.5 fL (80.0-100.0); Mean Corpuscular HGB Conc 32.5 g/dL (31.0-36.0); Mean Platelet Volume 11.1 fL (8.8-12.5); Monocytes # (Auto) 0.94 K/mcL (0.10-0.90); Neutrophils % (Auto) 87.3 % (38.0-78.0); Platelet Count 158 K/mcL (140-440); RBC 4.13 M/mcL (3.59-5.38); Red Cell Distribution Width 15.2 % (11.5-14.5); WBC 18.7 K/mcL (4.5-11.0)
[2022-04-13 06:45] LABS: ALT/SGPT 47 U/L (<40); AST/SGOT 63 U/L (<32); Albumin/Globulin Ratio 0.5 (1.0-2.3); Alkaline Phosphatase 201 U/L (39-117); Bilirubin,Direct 0.4 mg/dL (<0.3); Bilirubin,Total 0.5 mg/dL (0.1-1.0); Blood Urea Nitrogen 31 mg/dL (6-20); Calcium 7.8 mg/dL (8.6-10.4); Carbon Dioxide 24 mmol/L (22-30); Chloride 105 mmol/L (96-108); Globulin 3.9 gm/dL (2.2-3.7); Glomerular Filtration Rate 110; Glucose 126 mg/dL (70-105); Lactate Dehydrogenase 590 U/L (135-225); Phosphorous 3.6 mg/dL (2.5-4.5); Triglycerides 302 mg/dL (<150); Uric Acid 3.1 mg/dL (2.5-8.0)
[2022-04-13] MEDS: VANCOMYCIN 1,000 MG in 0.9 % SODIUM CHLORIDE 250 ML IV SCH (07:30)
--- NOTE | 2022-04-13 07:50 | Internal Med Progress Note ---
SUBJECTIVE Subjective Patient information: Note initiated : 04/13/22 at 7:48 am Service Date, if different from initiated Date: [] Patient: Aide Jerez 52 y/o F admitted on 04/11/22 for AMS, Weakness, Fever. Chief Complaint: [] Interval history: Ms. Jerez is a 52 year old female with no significant past medical history who presented to the emergency department with confusion and fevers. The patient presented with her son who lives with her. The patient is unable to provide a history due to encephalopathy therefore the history was taken from her son who said that she had been sick for 1 to 2 weeks.. She initially complained of diffuse muscle aches and was seen in the emergency department about a week prior to admission complaining of lower back pain and pelvic pain. She was discharged to home, a CT of the lumbar spine did not show any acute changes to explain her symptoms. The patient presented to the emergency department again on 04/10/2022 which is the day prior to admission complaining of body aches, fevers and diarrhea. At that time was found to have a sodium level of 125 which was attributed to a viral syndrome. The patient was discharged home then presented on the day of admission with fevers, tachycardia, tachypnea, leukocytosis and a lactic acid level of 2.4. The patient was started on broad- spectrum antibiotics and IV fluid. Sepsis work-up included urinalysis which was not suspicious for UTI, chest x-ray did not show any pulmonary infiltrates. A lumbar puncture was performed by radiology and per report purulent cerebrospinal fluid was drained raising concern for bacterial meningitis. Additionally, the patient did have a UDS in the ED which was positive for amphetamines. It is unclear if the patient has a history of IV drug use. 04/12 Fevers resolved overnight after the patient was started on antibiotics. White blood cell count has increased, likely due to Decadron. Lactic acid trended back to normal. Hyponatremia resolved. LFTs improving. The CSF fluid analysis was consistent with bacterial meningitis, cerebral spinal culture growing Staph aureus with antibiotic sensitivities pending, 1 out of 2 blood cultures positive for gram-positive cocci. Herpes simplex virus PCR pending. Continuing vancomycin IV dosed by pharmacy and ceftriaxone. Discontinued ampicillin as CSF growing Staph aureus and that will be covered sufficiently by vancomycin if it is MRSA or ceftriaxone if it is MSSA. Also discontinued acyclovir as HSV encephalitis is very unlikely. The patient's mental status has improved somewhat since admission. 04/13 Patient had enough improvement in her mentation last night that she was able to take some water by mouth. And follows some simple commands. Today she is awake although appears drowsy. She is able to follow some simple commands but seems to be hemiparetic on the left with the left facial droop. And she does not track with her eyes. Blood cultures and spinal fluid cultures are growing MSSA. Echocardiogram showed a large vegetation on the mitral valve. Repeat blood cultures from yesterday pending. Review of Systems: denies headache/fever/chills/nausea/vomiting/chest or abdominal pain/cough/dyspnea/diarrhea. Otherwise see above. PHYSICAL EXAM: General: Drowsy but awakens,, No acute Distress Eyes/N/T: Patient opens eyes a Lids but does not track with eyes, Mildl conjugate gaze to the right, no scleral icterus, Head/Neck: neck pain with flexion, rotation ok CV: RRR, 2/6SM, Pulm: Clear b/l, no wheezing/rhonchi/rales, no respiratory distress Abd: soft, nontender, +BS x4 Ext: no clubbing/cyanosis/edema, nontender Neuro: mildly drowsy, subtle left facial droop, conjugate gaze to right, left hemiparesis, sensations intact, follows commands, does not tract with eyes Psychiatric: Skin: warm/dry, normal color Constitutional Vitals: Vital Signs Temp Pulse Resp BP Pulse Ox O2 Del Method O2 Flow Rate 96.8 F L 69 12 120/75 99 Nasal Cannula 2 04/13/22 06:26 04/13/22 06:26 04/13/22 06:26 04/13/22 06:26 04/13/22 06:26 04/13/22 06:26 04/13/22 06:26 Period Temp Pulse Resp BP Sys/Gonzales Pulse Ox O2 Del Method O2 Flow Rate Last 24 Hr 96.8 F-99.4 F 69-88 11-18 94-140/63-100 96-100 Nasal Cannula- Room Air 2-2 Intake and Output 04/12/22 04/13/22 04/13/22 19:59 03:59 11:59 Intake Total 920 1200 270 Output Total 450 250 200 Balance 470 950 70 Weight 92.215 kg Intake & Output: Intake & Output 04/12/22 04/13/22 04/13/22 19:59 03:59 11:59 Intake Total 920 1200 270 Output Total 450 250 200 Balance 470 950 70 Weight 92.215 kg Intake: IV 870 1200 150 Sodium Chloride 0.9% 1,000 ml @ 520 1000 100 mls/hr IV .Q10H [facility] Rx#: [id number] Nafcillin 2 gm In Sodium 100 100 50 Chloride 0.9% 50 ml @ 100 mls/ hr IV Q4H [facility] Rx#:[id number] Vancomycin 1,000 mg In Sodium 250 Chloride 0.9% 250 ml @ 250 mls/ hr IV Q12H [facility] Rx#:[id number] Oral 50 120 Output: Urine Catheter Amount 450 250 200 Other: Urine Appearance Clear Clear Clear Uretheral ([place]) Clear Urine Color Dark Yellow Dark Yellow Dark Yellow Uretheral ([place]) Dark Yellow Urine Odor Normal Normal Normal OBJ DATA Labs 04/13/22 05:18 04/13/22 05:18 Labs: Abnormal Lab Results 04/13/22 04/13/22 04/12/22 05:18 05:18 05:20 WBC 18.7 H Hgb Hct RDW 15.2 H Immature Gran % (Auto) 0.9 H Neut % (Auto) 87.3 H Lymph % (Auto) 6.6 L Lymph # (Auto) 1.23 L [place] # (Auto) 0.94 H Immature Gran # 0.16 H Absolute Neutrophils 16.33 H POC VBG pH POC VBG pCO2 at Temp VBG Lactic Acid POC Sodium Sodium Chloride Carbon Dioxide Anion Gap 7.0 L BUN 31 H Creatinine 0.5 L 0.4 L Glucose 126 H 137 H POC Glucose Uric Acid 2.4 L Calcium 7.8 L 7.5 L POC WB Ioniz Calcium Direct Bilirubin 0.4 H 0.3 H GGT 109 H 133 H AST 63 H 89 H ALT 47 H 53 H Alkaline Phosphatase 201 H 218 H Lactate Dehydrogenase 590 H 633 H Albumin 2.0 L 2.0 L Globulin 3.9 H 3.9 H Albumin/Globulin Ratio 0.5 L 0.5 L Triglycerides 302 H 251 H Procalcitonin Urine Protein Urine Occult Blood Urine Urobilinogen Urine RBC Urine WBC Urine Mucus CSF RBC CSF Total Nucleated Auto CSF Neutrophils CSF Total Protein Ur Amphetamines Screen 04/12/22 04/12/22 04/11/22 05:15 05:15 19:46 WBC 19.7 H Hgb 10.9 L Hct 32.9 L RDW 14.7 H Immature Gran % (Auto) 0.9 H Neut % (Auto) 91.5 H Lymph % (Auto) 4.6 L Lymph # (Auto) 0.90 L [place] # (Auto) Immature Gran # 0.18 H Absolute Neutrophils 18.07 H POC VBG pH POC VBG pCO2 at Temp VBG Lactic Acid POC Sodium Sodium 125 L Chloride 93 L Carbon Dioxide 21 L Anion Gap BUN Creatinine Glucose 112 H POC Glucose Uric Acid 2.4 L Calcium 7.3 L POC WB Ioniz Calcium Direct Bilirubin 0.6 H GGT 153 H AST 108 H ALT 64 H Alkaline Phosphatase 233 H Lactate Dehydrogenase 688 H Albumin 1.9 L Globulin 4.1 H Albumin/Globulin Ratio 0.5 L Triglycerides 293 H Procalcitonin 3.24 H Urine Protein Urine Occult Blood Urine Urobilinogen Urine RBC Urine WBC Urine Mucus CSF RBC CSF Total Nucleated Auto CSF Neutrophils CSF Total Protein Ur Amphetamines Screen 04/11/22 04/11/22 04/11/22 18:12 17:25 14:11 WBC Hgb Hct RDW Immature Gran % (Auto) Neut % (Auto) Lymph % (Auto) Lymph # (Auto) [place] # (Auto) Immature Gran # Absolute Neutrophils POC VBG pH POC VBG pCO2 at Temp VBG Lactic Acid 2.2 H POC Sodium Sodium Chloride Carbon Dioxide Anion Gap BUN Creatinine Glucose POC Glucose Uric Acid Calcium POC WB Ioniz Calcium Direct Bilirubin GGT AST ALT Alkaline Phosphatase Lactate Dehydrogenase Albumin Globulin Albumin/Globulin Ratio Triglycerides Procalcitonin Urine Protein 100 A Urine Occult Blood Large A Urine Urobilinogen 4.0 A Urine RBC 71 H Urine WBC 22 H Urine Mucus Few A CSF RBC 6000 H CSF Total Nucleated Auto 3687 H CSF Neutrophils 39 H CSF Total Protein 96.0 H Ur Amphetamines Screen 04/11/22 04/11/22 04/11/22 14:11 14:00 14:00 WBC 17.1 H Hgb Hct RDW 14.6 H Immature Gran % (Auto) 0.9 H Neut % (Auto) 94.3 H Lymph % (Auto) 2.2 L Lymph # (Auto) 0.38 L [place] # (Auto) Immature Gran # 0.15 H Absolute Neutrophils 16.07 H POC VBG pH POC VBG pCO2 at Temp VBG Lactic Acid POC Sodium Sodium Chloride Carbon Dioxide Anion Gap BUN Creatinine Glucose POC Glucose Uric Acid Calcium POC WB Ioniz Calcium Direct Bilirubin GGT AST ALT Alkaline Phosphatase Lactate Dehydrogenase Albumin Globulin Albumin/Globulin Ratio Triglycerides Procalcitonin 3.42 H Urine Protein Urine Occult Blood Urine Urobilinogen Urine RBC Urine WBC Urine Mucus CSF RBC CSF Total Nucleated Auto CSF Neutrophils CSF Total Protein Ur Amphetamines Screen Suspect positive A 04/11/22 04/11/22 04/11/22 14:00 13:59 13:52 WBC Hgb Hct RDW Immature Gran % (Auto) Neut % (Auto) Lymph % (Auto) Lymph # (Auto) [place] # (Auto) Immature Gran # Absolute Neutrophils POC VBG pH 7.50 H POC VBG pCO2 at Temp 30.8 L VBG Lactic Acid 2.4 H POC Sodium 129 L Sodium Chloride Carbon Dioxide Anion Gap BUN Creatinine Glucose POC Glucose 161 H Uric Acid Calcium POC WB Ioniz Calcium 0.96 L Direct Bilirubin 0.5 H GGT AST 96 H ALT 60 H Alkaline Phosphatase 239 H Lactate Dehydrogenase Albumin 2.1 L Globulin 4.2 H Albumin/Globulin Ratio Triglycerides Procalcitonin Urine Protein Urine Occult Blood Urine Urobilinogen Urine RBC Urine WBC Urine Mucus CSF RBC CSF Total Nucleated Auto CSF Neutrophils CSF Total Protein Ur Amphetamines Screen Meds: Medications Hydrocodone Bitart/Acetaminophen (Hydrocodone/Apap 5/325mg Tablet) 1 tab PO Q4HP PRN; Protocol PRN Reason: Per Pain Protocol Docusate Sodium (Docusate Sodium 100 Mg Capsule) 100 mg PO BID [facility] Last Admin: 04/12/22 19:43 Dose: Not Given Enoxaparin Sodium (Enoxaparin 40 Mg/0.4 Ml Syringe) 40 mg SQ DAILY [facility] Last Admin: 04/12/22 08:30 Dose: 40 mg Hydromorphone HCl (Hydromorphone 0.5 Mg/0.5 Ml Syringe) 0.5 mg IV Q2HP PRN; Protocol PRN Reason: Per Pain Protocol Last Admin: 04/13/22 04:53 Dose: 0.5 mg Vancomycin HCl 1,000 mg/ (Sodium Chloride) 250 mls @ 250 mls/hr IV Q12H [facility] Last Admin: 04/13/22 07:30 Dose: 100 mls/hr Acetaminophen (Ofirmev) 1,000 mg in 100 mls @ 200 mls/hr IV Q8HP PRN; Protocol PRN Reason: PAIN/FEVER > 101 Last Infusion: 04/13/22 04:15 Dose: Infused Sodium Chloride (Sodium Chloride 0.9%) 1,000 mls @ 100 mls/hr IV .Q10H [facility] Last Admin: 04/13/22 02:31 Dose: 100 mls/hr Nafcillin Sodium 2 gm/ Sodium (Chloride) 50 mls @ 100 mls/hr IV Q4H [facility]; Protocol Last Infusion: 04/13/22 05:58 Dose: Infused Lactulose (Lactulose 20 Gm/30 Ml Oral.Suad) 10 gm PO DAILYP PRN PRN Reason: Constipation Lorazepam (Lorazepam 2 Mg/Ml Vial) 0.5 mg IV Q2HP PRN PRN Reason: ANXIETY/SEDATION Ondansetron HCl (Ondansetron 4 Mg/2 Ml Vial) 4 mg IV Q4HP PRN; Protocol PRN Reason: Nausea And Vomiting Senna (Sennosides 1 Tablet) 2 tab PO [facility] PRN PRN Reason: Constipation Sodium Chloride (0.9 % Sodium Chloride 10 Ml Syringe) 10 ml IV Q8 [facility] Last Admin: 04/13/22 05:29 Dose: 10 ml Vancomycin HCl (Vancomycin Per Pharmacy) 1 order IV UD [facility]; Protocol A/P Narrative A/P Narrative: A: #Bacterial Meningitis (Staph Aureus): #Bacteremia (Staph Aureus): #Endocarditis: #UTI: 2/2 above #Sepsis: 2/2 above, afebrile since late 04/11. leukocytosis #Encephalopathy: 2/2 above, following simple commands now #Stroke-like symptoms(left hemiparesis/EOMI deficit) #Transaminitis: #suspected Methamphetamine use disorder: -UDS (+) #Hyponatremia: improved #Obesity: bmi 33 Plan: -Per ID > Vanco and Nafcillin, further recs pending final cultures -Tele-infectious disease consulted for bacterial meningitis management recommendations. -d/c Dexamethasone, Discontinue acyclovir IV as HSV encephalitis is unlikely -Follow CSF culture antibiotic sensitivities CSF HSV PCR and CSF meningeal encephalitis panel. -serial BC -echo and MRI Brain and MRI of lumbar spine pending -Renal CBC, function and LFTs. -Neurochecks every 4 hours. -clear liquid diet started advance as tolerated, d/c IVF, ST eval -monitor i/o, uop, -monitor/trend/replace electrolytes -pt/ot when able -Disposition: Will depend on clinical course. The patient is medically stable for discharge she may need rehab, potentially high intensity rehab. CM for placement -ppx: Lovenox CODE STATUS: Production Manager Spent With Patient Time: Total time spent is greater than 50% in coordination of care (as documented) at patient's floor/unit and/or counseling patient: Critical Care Time: Yes Total Critical Care Time: 50
[2022-04-13] MEDS: ENOXAPARIN 40 MG/0.4 ML SYRINGE SQ SCH (10:09)
[2022-04-13] MEDS: DOCUSATE SODIUM 100 MG CAPSULE PO SCH ×3 (10:11→20:41)
[2022-04-13] MEDS ORDERED: VANCOMYCIN 500 MG in 0.9 % SODIUM CHLORIDE 100 ML IV ONE (10:15)
[2022-04-13] MEDS: LORazepam 2 MG/ML VIAL IV PRN (17:06)
[2022-04-13] MEDS ORDERED: LORazepam 2 MG/ML VIAL IV ONE (17:55)
[2022-04-13] MEDS ORDERED: HALOPERIDOL LACTATE 5 MG/ML VIAL IV ONE (17:56)
[2022-04-13] MEDS ORDERED: LORazepam 2 MG/ML VIAL ONE (17:57)
[2022-04-13] MEDS ORDERED: GADOBENATE DIMEGLUMINE 20 ML/VIAL IV ONE (18:22)
[2022-04-13] MEDS: VANCOMYCIN 1,500 MG in 0.9 % SODIUM CHLORIDE 500 ML IV SCH (20:40)
--- NOTE | 2022-04-14 03:44 | Magnetic Resonance Report ---
CLINICAL INFORMATION: Left hemiparetic with left facial droop. History of staph aureus bacterial meningitis and bacteremia COMPARISON: Head CT 04/11/2022 TECHNIQUE: IV conscious sedation was provided by ICU nurse. Please see medication sheet for dosages and time of examination. Sagittal T1 FLAIR, axial diffusion ADC, T1 FLAIR, T2 FLAIR propeller, T2 propeller gradient, T1 post Magnevist and coronal T1 FLAIR post Magnevist images were acquired. FINDINGS: The ventricles, sulci, fissures and cisterns are normal in size configuration-no extra-axial fluid collections or mass are appreciated. In the posterior right frontal cortex and white matter, there is a 4 cm region of increased T2 signal, gyral swelling patchy enhancement, mild local mass effect and restricted diffusion. There are multiple (greater than 20) similar small foci all less than 4 mm scattered throughout the cortical medullary regions of both cerebral hemispheres with a few foci scattered within the peripheral cerebellum. In the inferior occipital lobes, there are gyriform regions of restricted diffusion, increased T2 signal and patchy enhancing. Findings are most compatible with moderate early right frontal frontal cerebritis, small regions of cerebritis in both inferior occipital lobes with scattered foci of septic emboli throughout the corticomedullary junctions of both cerebral hemispheres and cerebellum. The signal void in intracerebral arteries, extra-axial cranial nerves, pituitary, orbits and paranasal sinuses are all normal. IMPRESSION: 4 cm region of early cerebritis in the posterior right frontal lobe with two smaller regions in both inferior occipital lobes. In addition, there are multiple (greater then 20) septic emboli scattered throughout the cortical medullary junction of the cerebrum and cerebellum. Bilateral hemispheric septic emboli would most commonly originate from infected cardiac valve vegetations Interpreted and Authenticated by: Reyes White 04/14/22
[2022-04-14] MEDS: NAFCILLIN 2 GM in 0.9 % SODIUM CHLORIDE 50 ML IV SCH ×6 (03:59→23:51)
[2022-04-14] MEDS: 0.9 % SODIUM CHLORIDE 10 ML SYRINGE IV SCH ×3 (05:46→20:05)
[2022-04-14] MEDS: HYDROmorphone 0.5 MG/0.5 ML SYRINGE IV PRN ×4 (05:47→20:22)
[2022-04-14 07:19] LABS: Basophils # (Auto) 0.03 K/mcL (0.00-0.30); Basophils % (Auto) 0.2 % (0.0-2.0); Eosinophils # (Auto) 0.02 K/mcL (0.00-0.70); Eosinophils % (Auto) 0.2 % (0.0-7.0); Hematocrit 36.6 % (34.1-44.9); Hemoglobin 11.9 g/dL (11.2-15.7); Lymphocytes # (Auto) 1.85 K/mcL (1.50-4.80); Lymphocytes % (Auto) 14.1 % (15.5-49.0); Mean Cell Volume 82.8 fL (80.0-100.0); Mean Corpuscular HGB Conc 32.5 g/dL (31.0-36.0); Mean Platelet Volume 10.8 fL (8.8-12.5); Monocytes % (Auto) 6.9 % (1.0-12.0); Neutrophils % (Auto) 77.9 % (38.0-78.0); Platelet Count 172 K/mcL (140-440); RBC 4.42 M/mcL (3.59-5.38); Red Cell Distribution Width 15.3 % (11.5-14.5); WBC 13.1 K/mcL (4.5-11.0)
[2022-04-14 07:42] LABS: ALT/SGPT 68 U/L (<40); AST/SGOT 85 U/L (<32); Albumin/Globulin Ratio 0.5 (1.0-2.3); Alkaline Phosphatase 227 U/L (39-117); Bilirubin,Direct 0.8 mg/dL (<0.3); Blood Urea Nitrogen 27 mg/dL (6-20); Calcium 7.5 mg/dL (8.6-10.4); Carbon Dioxide 24 mmol/L (22-30); Chloride 102 mmol/L (96-108); Globulin 4.1 gm/dL (2.2-3.7); Glomerular Filtration Rate 98; Glucose 83 mg/dL (70-105); Lactate Dehydrogenase 612 U/L (135-225); Phosphorous 3.7 mg/dL (2.5-4.5); Triglycerides 376 mg/dL (<150); Uric Acid 2.9 mg/dL (2.5-8.0)
--- NOTE | 2022-04-14 07:55 | Internal Med Progress Note ---
SUBJECTIVE Subjective Patient information: Note initiated : 04/14/22 at 7:48 am Service Date, if different from initiated Date: [] Patient: Aide Jerez 52 y/o F admitted on 04/11/22 for AMS, Weakness, Fever. Chief Complaint: [] Interval history: HPI: Ms. Jerez is a 52 year old female with no significant past medical history who presented to the emergency department with confusion and fevers. The patient presented with her son who lives with her. The patient is unable to provide a history due to encephalopathy therefore the history was taken from her son who said that she had been sick for 1 to 2 weeks.. She initially complaine d of diffuse muscle aches and was seen in the emergency department about a week prior to admission complaining of lower back pain and pelvic pain. She was discharged to home, a CT of the lumbar spine did not show any acute changes to explain her symptoms. The patient presented to the emergency department again on 04/10/2022 which is the day prior to admission complaining of body aches, fevers and diarrhea. At that time was found to have a sodium level of 125 which was attributed to a viral syndrome. The patient was discharged home then presented on the day of admission with fevers, tachycardia, tachypnea, leukocytosis and a lactic acid level of 2.4. The patient was started on broad-spectrum antibiotics and IV fluid. Sepsis work-up included urinalysis which was not suspicious for UTI, chest x-ray did not show any pulmonary infiltrates. A lumbar puncture was performed by radiology and per report purulent cerebrospinal fluid was drained raising concern for bacterial meningitis. Additionally, the patient did have a UDS in the ED which was positive for amphetamines. It is unclear if the patient has a history of IV drug use. 04/12 Fevers resolved overnight after the patient was started on antibiotics. White blood cell count has increased, likely due to Decadron. Lactic acid trended back to normal. Hyponatremia resolved. LFTs improving. The CSF fluid analysis was consistent with bacterial meningitis, cerebral spinal culture growing Staph aureus with antibiotic sensitivities pending, 1 out of 2 blood cultures positive for gram-positive cocci. Herpes simplex virus PCR pending. Continuing vancomycin IV dosed by pharmacy and ceftriaxone. Discontinued ampicillin as CSF growing Staph aureus and that will be covered sufficiently by vancomycin if it is MRSA or ceftriaxone if it is MSSA. Also discontinued acyclovir as HSV encephalitis is very unlikely. The patient's mental status has improved somewhat since admission. 04/13 Patient had enough improvement in her mentation last night that she was able to take some water by mouth. And follows some simple commands. Today she is awake although appears drowsy. She is able to follow some simple commands but seems to be hemiparetic on the left with the left facial droop. And she does not track with her eyes. Blood cultures and spinal fluid cultures are growing MSSA. Echocardiogram showed a large vegetation on the mitral valve. Repeat blood cultures from yesterday pending. 04/14 MRI with scattered septic emboli infarcts throughout the cerebrum and cerebellum. Leukocytosis improving today. Tmax 100.4 o/n Seen by speech therapy yesterday and put on appropriate dysphagia diet. Patient follows commands but does not verbalize, moans. Had several discussions with family today regarding status and course of action. Review of system:Unable to gather today as patient nonverbal today. PHYSICAL EXAM: General: Drowsy but awakens, No acute Distress Eyes/N/T: PEERL, Mildl conjugate gaze to the right, no scleral icterus, Head/Neck: neck pain with flexion, rotation ok CV: RRR, 2/6SM, Pulm: Clear b/l, no wheezing/rhonchi/rales, no respiratory distress Abd: soft, nontender, +BS x4 Ext: no clubbing/cyanosis/edema, nontender Neuro: mildly drowsy, subtle left facial droop, conjugate gaze to right, left hemiparesis, sensations intact, follows commands, does not tract with eyes, does not verbalize today Psychiatric: Skin: warm/dry, normal color Constitutional Vitals: Vital Signs Temp Pulse Resp BP Pulse Ox O2 Del Method O2 Flow Rate 97.2 F 95 H 20 141/80 95 Nasal Cannula 2 04/14/22 04:00 04/14/22 06:00 04/14/22 06:00 04/14/22 06:00 04/14/22 06:00 04/14/22 04:00 04/14/22 04:00 Period Temp Pulse Resp BP Sys/Gonzales Pulse Ox O2 Del Method O2 Flow Rate Last 24 Hr 97.0 F-100.4 F 79-103 14-26 113-150/59-96 92-100 Nasal Cannula-Room Air 0-2 Intake and Output 04/13/22 04/14/22 04/14/22 19:59 03:59 11:59 Intake Total 2130 700 290 Output Total 430 340 550 Balance 1700 360 -260 Weight 92.215 kg 92.221 kg Intake & Output: Intake & Output 04/13/22 04/14/22 04/14/22 19:59 03:59 11:59 Intake Total 2130 700 290 Output Total 430 340 550 Balance 1700 360 -260 Weight 92.215 kg 92.221 kg Intake: Nourishment/Supplement quantity 240 (ml) IV 300 700 50 Nafcillin 2 gm In Sodium 100 100 50 Chloride 0.9% 50 ml @ 100 mls/ hr IV Q4H [facility] Rx#:[id number] Vancomycin 500 mg In Sodium 100 Chloride 0.9% 100 ml @ 100 mls/ hr IV ONCE ONE Rx#:[id number] Vancomycin 1,500 mg In Sodium 500 Chloride 0.9% 500 ml @ 333.3 mls/hr IV Q12H [facility] Rx#: [id number] Oral 1590 240 Output: Urine Catheter Amount 430 340 550 Other: Meal Nourishment/Supplement Nourishment/Supplement name ensure clear CLEAR ENSURE Urine Appearance Clear Clear Cloudy Uretheral (Molina) Clear Urine Color Dark Yellow Yellow Yellow Uretheral (Molina) Yellow OBJ DATA Labs 04/14/22 05:30 04/14/22 05:30 Labs: Abnormal Lab Results 04/14/22 04/14/22 04/13/22 05:30 05:30 05:18 WBC 13.1 H Hgb Hct RDW 15.3 H Immature Gran % (Auto) 0.7 H Neut % (Auto) Lymph % (Auto) 14.1 L Lymph # (Auto) Beauregard # (Auto) Immature Gran # 0.09 H Absolute Neutrophils 10.20 H POC VBG pH POC VBG pCO2 at Temp VBG Lactic Acid POC Sodium Sodium Chloride Carbon Dioxide Anion Gap 7.0 L BUN 27 H 31 H Creatinine 0.5 L Glucose 126 H POC Glucose Uric Acid Calcium 7.5 L 7.8 L POC WB Ioniz Calcium Direct Bilirubin 0.8 H 0.4 H GGT 147 H 109 H AST 85 H 63 H ALT 68 H 47 H Alkaline Phosphatase 227 H 201 H Lactate Dehydrogenase 612 H 590 H Albumin 2.0 L 2.0 L Globulin 4.1 H 3.9 H Albumin/Globulin Ratio 0.5 L 0.5 L Triglycerides 376 H 302 H Procalcitonin Urine Protein Urine Occult Blood Urine Urobilinogen Urine RBC Urine WBC Urine Mucus CSF RBC CSF Total Nucleated Auto CSF Neutrophils CSF Total Protein Ur Amphetamines Screen 04/13/22 04/12/22 04/12/22 05:18 05:20 05:15 WBC 18.7 H Hgb Hct RDW 15.2 H Immature Gran % (Auto) 0.9 H Neut % (Auto) 87.3 H Lymph % (Auto) 6.6 L Lymph # (Auto) 1.23 L Bea[place]gard # (Auto) 0.94 H Immature Gran # 0.16 H Absolute Neutrophils 16.33 H POC VBG pH POC VBG pCO2 at Temp VBG Lactic Acid POC Sodium Sodium Chloride Carbon Dioxide Anion Gap BUN Creatinine 0.4 L Glucose 137 H POC Glucose Uric Acid 2.4 L Calcium 7.5 L POC WB Ioniz Calcium Direct Bilirubin 0.3 H GGT 133 H AST 89 H ALT 53 H Alkaline Phosphatase 218 H Lactate Dehydrogenase 633 H Albumin 2.0 L Globulin 3.9 H Albumin/Globulin Ratio 0.5 L Triglycerides 251 H Procalcitonin 3.24 H Urine Protein Urine Occult Blood Urine Urobilinogen Urine RBC Urine WBC Urine Mucus CSF RBC CSF Total Nucleated Auto CSF Neutrophils CSF Total Protein Ur Amphetamines Screen 04/12/22 04/11/22 04/11/22 05:15 19:46 18:12 WBC 19.7 H Hgb 10.9 L Hct 32.9 L RDW 14.7 H Immature Gran % (Auto) 0.9 H Neut % (Auto) 91.5 H Lymph % (Auto) 4.6 L Lymph # (Auto) 0.90 L Beauregard # (Auto) Immature Gran # 0.18 H Absolute Neutrophils 18.07 H POC VBG pH POC VBG pCO2 at Temp VBG Lactic Acid 2.2 H POC Sodium Sodium 125 L Chloride 93 L Carbon Dioxide 21 L Anion Gap BUN Creatinine Glucose 112 H POC Glucose Uric Acid 2.4 L Calcium 7.3 L POC WB Ioniz Calcium Direct Bilirubin 0.6 H GGT 153 H AST 108 H ALT 64 H Alkaline Phosphatase 233 H Lactate Dehydrogenase 688 H Albumin 1.9 L Globulin 4.1 H Albumin/Globulin Ratio 0.5 L Triglycerides 293 H Procalcitonin Urine Protein Urine Occult Blood Urine Urobilinogen Urine RBC Urine WBC Urine Mucus CSF RBC CSF Total Nucleated Auto CSF Neutrophils CSF Total Protein Ur Amphetamines Screen 04/11/22 04/11/22 04/11/22 17:25 14:11 14:11 WBC Hgb Hct RDW Immature Gran % (Auto) Neut % (Auto) Lymph % (Auto) Lymph # (Auto) Beauregard # (Auto) Immature Gran # Absolute Neutrophils POC VBG pH POC VBG pCO2 at Temp VBG Lactic Acid POC Sodium Sodium Chloride Carbon Dioxide Anion Gap BUN Creatinine Glucose POC Glucose Uric Acid Calcium POC WB Ioniz Calcium Direct Bilirubin GGT AST ALT Alkaline Phosphatase Lactate Dehydrogenase Albumin Globulin Albumin/Globulin Ratio Triglycerides Procalcitonin Urine Protein 100 A Urine Occult Blood Large A Urine Urobilinogen 4.0 A Urine RBC 71 H Urine WBC 22 H Urine Mucus Few A CSF RBC 6000 H CSF Total Nucleated Auto 3687 H CSF Neutrophils 39 H CSF Total Protein 96.0 H Ur Amphetamines Screen Suspect positive A 04/11/22 04/11/22 04/11/22 14:00 14:00 14:00 WBC 17.1 H Hgb Hct RDW 14.6 H Immature Gran % (Auto) 0.9 H Neut % (Auto) 94.3 H Lymph % (Auto) 2.2 L Lymph # (Auto) 0.38 L Beauregard # (Auto) Immature Gran # 0.15 H Absolute Neutrophils 16.07 H POC VBG pH POC VBG pCO2 at Temp VBG Lactic Acid POC Sodium Sodium Chloride Carbon Dioxide Anion Gap BUN Creatinine Glucose POC Glucose Uric Acid Calcium POC WB Ioniz Calcium Direct Bilirubin 0.5 H GGT AST 96 H ALT 60 H Alkaline Phosphatase 239 H Lactate Dehydrogenase Albumin 2.1 L Globulin 4.2 H Albumin/Globulin Ratio Triglycerides Procalcitonin 3.42 H Urine Protein Urine Occult Blood Urine Urobilinogen Urine RBC Urine WBC Urine Mucus CSF RBC CSF Total Nucleated Auto CSF Neutrophils CSF Total Protein Ur Amphetamines Screen 04/11/22 04/11/22 13:59 13:52 WBC Hgb Hct RDW Immature Gran % (Auto) Neut % (Auto) Lymph % (Auto) Lymph # (Auto) Beauregard # (Auto) Immature Gran # Absolute Neutrophils POC VBG pH 7.50 H POC VBG pCO2 at Temp 30.8 L VBG Lactic Acid 2.4 H POC Sodium 129 L Sodium Chloride Carbon Dioxide Anion Gap BUN Creatinine Glucose POC Glucose 161 H Uric Acid Calcium POC WB Ioniz Calcium 0.96 L Direct Bilirubin GGT AST ALT Alkaline Phosphatase Lactate Dehydrogenase Albumin Globulin Albumin/Globulin Ratio Triglycerides Procalcitonin Urine Protein Urine Occult Blood Urine Urobilinogen Urine RBC Urine WBC Urine Mucus CSF RBC CSF Total Nucleated Auto CSF Neutrophils CSF Total Protein Ur Amphetamines Screen Meds: Medications Hydrocodone Bitart/Acetaminophen (Hydrocodone/Apap 5/325mg Tablet) 1 tab PO Q4HP PRN; Protocol PRN Reason: Per Pain Protocol Docusate Sodium (Docusate Sodium 100 Mg Capsule) 100 mg PO BID [facility] Last Admin: 04/13/22 20:41 Dose: Not Given Enoxaparin Sodium (Enoxaparin 40 Mg/0.4 Ml Syringe) 40 mg SQ DAILY [facility] Last Admin: 04/13/22 10:09 Dose: 40 mg Hydromorphone HCl (Hydromorphone 0.5 Mg/0.5 Ml Syringe) 0.5 mg IV Q2HP PRN; Protocol PRN Reason: Per Pain Protocol Last Admin: 04/14/22 05:47 Dose: 0.5 mg Acetaminophen (Ofirmev) 1,000 mg in 100 mls @ 200 mls/hr IV Q8HP PRN; Protocol PRN Reason: PAIN/FEVER > 101 Last Infusion: 04/13/22 23:32 Dose: Infused Nafcillin Sodium 2 gm/ Sodium (Chloride) 50 mls @ 100 mls/hr IV Q4H [facility]; Protocol Last Infusion: 04/14/22 04:40 Dose: Infused Vancomycin HCl 1,500 mg/ (Sodium Chloride) 500 mls @ 333.3 mls/hr IV Q12H [facility] Last Infusion: 04/13/22 23:01 Dose: Infused Lactulose (Lactulose 20 Gm/30 Ml Oral.Suad) 10 gm PO DAILYP PRN PRN Reason: Constipation Lorazepam (Lorazepam 2 Mg/Ml Vial) 0.5 mg IV Q2HP PRN PRN Reason: ANXIETY/SEDATION Last Admin: 04/13/22 17:06 Dose: 0.5 mg Ondansetron HCl (Ondansetron 4 Mg/2 Ml Vial) 4 mg IV Q4HP PRN; Protocol PRN Reason: Nausea And Vomiting Last Admin: 04/13/22 16:03 Dose: 4 mg Senna (Sennosides 1 Tablet) 2 tab PO HSP PRN PRN Reason: Constipation Sodium Chloride (0.9 % Sodium Chloride 10 Ml Syringe) 10 ml IV Q8 [facility] Last Admin: 04/14/22 05:46 Dose: 10 ml Vancomycin HCl (Vancomycin Per Pharmacy) 1 order IV UD [facility]; Protocol A/P Narrative A/P Narrative: A: #Bacterial Meningitis/encephalitis (MSSA): #Bacteremia (MSSA): #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 leukocytosis improving #Encephalopathy: 2/2 above, following simple commands now but not verbal today #Stroke(left hemiparesis/EOMI deficit): 2/2 septic emboli #Oropharyngeal dysphagia,mild: #Transaminitis: #Methamphetamine use disorder, confirmed with family: -UDS (+) #Hyponatremia: improved #Obesity: bmi 33 Plan: -Per ID > Vanco and Nafcillin, further recs pending -discussed findings on echo/mri with ID, will transfer to higher level of care for potential CT surgery. -Tele-infectious disease following -Follow CSF culture antibiotic sensitivities CSF HSV PCR and CSF meningeal encephalitis panel. -serial BC -MRI of lumbar spine pending -Renal CBC, function and LFTs. -Neurochecks every 4 hours. -diet per ST -monitor i/o, uop, -monitor/trend/replace electrolytes -pt/ot when able -CM for placement needs -ppx: Lovenox CODE STATUS: [employer] Spent With Patient Time: Total time spent is greater than 50% in coordination of care (as documented) at patient's floor/unit and/or counseling patient: Critical Care Time: Yes Total Critical Care Time: 70
[2022-04-14] MEDS: ENOXAPARIN 40 MG/0.4 ML SYRINGE SQ SCH (08:35)
[2022-04-14] MEDS: VANCOMYCIN 1,500 MG in 0.9 % SODIUM CHLORIDE 500 ML IV SCH (08:35)
[2022-04-14] MEDS: DOCUSATE SODIUM 100 MG CAPSULE PO SCH ×2 (08:36→19:58)
[2022-04-14] MEDS: ACETAMINOPHEN 1,000 MG/100 ML BAG IV PRN ×2 (10:46→19:45)
--- NOTE | 2022-04-14 12:39 | Internal Med Progress Note ---
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 Chief Complaint: [] Interval history: Patient continue to be encephalopathic. She was better yesterday but had worsened. Constitutional Vitals: Vital Signs Temp Pulse Resp BP Pulse Ox O2 Del Method O2 Flow Rate 99.6 F H 98 H 22 142/87 94 Room Air 2 04/14/22 12:00 04/14/22 12:00 04/14/22 12:00 04/14/22 12:00 04/14/22 12:00 04/14/22 12:00 04/14/22 04:00 Period Temp Pulse Resp BP Sys/Gonzales Pulse Ox O2 Del Method O2 Flow Rate Last 24 Hr 97.2 F-100.4 F 86-103 - 113-150/59-93 91-100 Nasal Cannula-Room Air 0-2 Intake and Output 04/14/22 04/14/22 04/14/22 03:59 11:59 19:59 Intake Total 700 840 240 Output Total 340 1225 Balance 360 -385 240 Weight 203 lb 5 oz Intake & Output: Intake & Output 04/14/22 04/14/22 04/14/22 03:59 11:59 19:59 Intake Total 700 840 240 Output Total 340 1225 Balance 360 -385 240 Weight 203 lb 5 oz Intake: Nourishment/Supplement quantity 240 (ml) IV 700 600 Nafcillin 2 gm In Sodium 100 100 Chloride 0.9% 50 ml @ 100 mls/ hr IV Q4H [facility] Rx#:[id number] Vancomycin 1,500 mg In Sodium 500 500 Chloride 0.9% 500 ml @ 333.3 mls/hr IV Q12H [facility] Rx#: [id number] Oral 240 Output: Urine Catheter Amount 340 1225 Other: Meal Nourishment/Supplement Nourishment/Supplement Feeding Ability Total Assistance Nourishment/Supplement name CLEAR ENSURE Ensure Clear Urine Appearance Clear Clear Uretheral ([place]) Clear Clear Urine Color Yellow Yellow Uretheral ([place]) Yellow Yellow Stool Size Small Stool Color Brown Stool Consistency Soft Loose Exam: Encephalopathic, moaning. Opens eyes spontaneously but no cognitive response Diaphoretic Skin lesions unchanged OBJ DATA Labs 04/14/22 05:30 04/14/22 05:30 Labs: Abnormal Lab Results 04/14/22 04/14/22 04/13/22 05:30 05:30 05:18 WBC 13.1 H Hgb Hct RDW 15.3 H Immature Gran % (Auto) 0.7 H Neut % (Auto) Lymph % (Auto) 14.1 L Lymph # (Auto) [place] # (Auto) Immature Gran # 0.09 H Absolute Neutrophils 10.20 H POC VBG pH POC VBG pCO2 at Temp VBG Lactic Acid POC Sodium Sodium Chloride Carbon Dioxide Anion Gap 7.0 L BUN 27 H 31 H Creatinine 0.5 L Glucose 126 H POC Glucose Uric Acid Calcium 7.5 L 7.8 L POC WB Ioniz Calcium Direct Bilirubin 0.8 H 0.4 H GGT 147 H 109 H AST 85 H 63 H ALT 68 H 47 H Alkaline Phosphatase 227 H 201 H Lactate Dehydrogenase 612 H 590 H Albumin 2.0 L 2.0 L Globulin 4.1 H 3.9 H Albumin/Globulin Ratio 0.5 L 0.5 L Triglycerides 376 H 302 H Procalcitonin Urine Protein Urine Occult Blood Urine Urobilinogen Urine RBC Urine WBC Urine Mucus CSF RBC CSF Total Nucleated Auto CSF Neutrophils CSF Total Protein Ur Amphetamines Screen 04/13/22 04/12/22 04/12/22 05:18 05:20 05:15 WBC 18.7 H Hgb Hct RDW 15.2 H Immature Gran % (Auto) 0.9 H Neut % (Auto) 87.3 H Lymph % (Auto) 6.6 L Lymph # (Auto) 1.23 L [place] # (Auto) 0.94 H Immature Gran # 0.16 H Absolute Neutrophils 16.33 H POC VBG pH POC VBG pCO2 at Temp VBG Lactic Acid POC Sodium Sodium Chloride Carbon Dioxide Anion Gap BUN Creatinine 0.4 L Glucose 137 H POC Glucose Uric Acid 2.4 L Calcium 7.5 L POC WB Ioniz Calcium Direct Bilirubin 0.3 H GGT 133 H AST 89 H ALT 53 H Alkaline Phosphatase 218 H Lactate Dehydrogenase 633 H Albumin 2.0 L Globulin 3.9 H Albumin/Globulin Ratio 0.5 L Triglycerides 251 H Procalcitonin 3.24 H Urine Protein Urine Occult Blood Urine Urobilinogen Urine RBC Urine WBC Urine Mucus CSF RBC CSF Total Nucleated Auto CSF Neutrophils CSF Total Protein Ur Amphetamines Screen 04/12/22 04/11/22 04/11/22 05:15 19:46 18:12 WBC 19.7 H Hgb 10.9 L Hct 32.9 L RDW 14.7 H Immature Gran % (Auto) 0.9 H Neut % (Auto) 91.5 H Lymph % (Auto) 4.6 L Lymph # (Auto) 0.90 L [place] # (Auto) Immature Gran # 0.18 H Absolute Neutrophils 18.07 H POC VBG pH POC VBG pCO2 at Temp VBG Lactic Acid 2.2 H POC Sodium Sodium 125 L Chloride 93 L Carbon Dioxide 21 L Anion Gap BUN Creatinine Glucose 112 H POC Glucose Uric Acid 2.4 L Calcium 7.3 L POC WB Ioniz Calcium Direct Bilirubin 0.6 H GGT 153 H AST 108 H ALT 64 H Alkaline Phosphatase 233 H Lactate Dehydrogenase 688 H Albumin 1.9 L Globulin 4.1 H Albumin/Globulin Ratio 0.5 L Triglycerides 293 H Procalcitonin Urine Protein Urine Occult Blood Urine Urobilinogen Urine RBC Urine WBC Urine Mucus CSF RBC CSF Total Nucleated Auto CSF Neutrophils CSF Total Protein Ur Amphetamines Screen 04/11/22 04/11/22 04/11/22 17:25 14:11 14:11 WBC Hgb Hct RDW Immature Gran % (Auto) Neut % (Auto) Lymph % (Auto) Lymph # (Auto) [place] # (Auto) Immature Gran # Absolute Neutrophils POC VBG pH POC VBG pCO2 at Temp VBG Lactic Acid POC Sodium Sodium Chloride Carbon Dioxide Anion Gap BUN Creatinine Glucose POC Glucose Uric Acid Calcium POC WB Ioniz Calcium Direct Bilirubin GGT AST ALT Alkaline Phosphatase Lactate Dehydrogenase Albumin Globulin Albumin/Globulin Ratio Triglycerides Procalcitonin Urine Protein 100 A Urine Occult Blood Large A Urine Urobilinogen 4.0 A Urine RBC 71 H Urine WBC 22 H Urine Mucus Few A CSF RBC 6000 H CSF Total Nucleated Auto 3687 H CSF Neutrophils 39 H CSF Total Protein 96.0 H Ur Amphetamines Screen Suspect positive A 04/11/22 04/11/22 04/11/22 14:00 14:00 14:00 WBC 17.1 H Hgb Hct RDW 14.6 H Immature Gran % (Auto) 0.9 H Neut % (Auto) 94.3 H Lymph % (Auto) 2.2 L Lymph # (Auto) 0.38 L [place] # (Auto) Immature Gran # 0.15 H Absolute Neutrophils 16.07 H POC VBG pH POC VBG pCO2 at Temp VBG Lactic Acid POC Sodium Sodium Chloride Carbon Dioxide Anion Gap BUN Creatinine Glucose POC Glucose Uric Acid Calcium POC WB Ioniz Calcium Direct Bilirubin 0.5 H GGT AST 96 H ALT 60 H Alkaline Phosphatase 239 H Lactate Dehydrogenase Albumin 2.1 L Globulin 4.2 H Albumin/Globulin Ratio Triglycerides Procalcitonin 3.42 H Urine Protein Urine Occult Blood Urine Urobilinogen Urine RBC Urine WBC Urine Mucus CSF RBC CSF Total Nucleated Auto CSF Neutrophils CSF Total Protein Ur Amphetamines Screen 04/11/22 04/11/22 13:59 13:52 WBC Hgb Hct RDW Immature Gran % (Auto) Neut % (Auto) Lymph % (Auto) Lymph # (Auto) [place] # (Auto) Immature Gran # Absolute Neutrophils POC VBG pH 7.50 H POC VBG pCO2 at Temp 30.8 L VBG Lactic Acid 2.4 H POC Sodium 129 L Sodium Chloride Carbon Dioxide Anion Gap BUN Creatinine Glucose POC Glucose 161 H Uric Acid Calcium POC WB Ioniz Calcium 0.96 L Direct Bilirubin GGT AST ALT Alkaline Phosphatase Lactate Dehydrogenase Albumin Globulin Albumin/Globulin Ratio Triglycerides Procalcitonin Urine Protein Urine Occult Blood Urine Urobilinogen Urine RBC Urine WBC Urine Mucus CSF RBC CSF Total Nucleated Auto CSF Neutrophils CSF Total Protein Ur Amphetamines Screen Meds: Medications Hydrocodone Bitart/Acetaminophen (Hydrocodone/Apap 5/325mg Tablet) 1 tab PO Q4HP PRN; Protocol PRN Reason: Per Pain Protocol Docusate Sodium (Docusate Sodium 100 Mg Capsule) 100 mg PO BID [facility] Last Admin: 04/14/22 08:36 Dose: Not Given Enoxaparin Sodium (Enoxaparin 40 Mg/0.4 Ml Syringe) 40 mg SQ DAILY [facility] Last Admin: 04/14/22 08:35 Dose: 40 mg Hydromorphone HCl (Hydromorphone 0.5 Mg/0.5 Ml Syringe) 0.5 mg IV Q2HP PRN; Protocol PRN Reason: Per Pain Protocol Last Admin: 04/14/22 08:40 Dose: 0.5 mg Acetaminophen (Ofirmev) 1,000 mg in 100 mls @ 200 mls/hr IV Q8HP PRN; Protocol PRN Reason: PAIN/FEVER > 101 Last Admin: 04/14/22 10:46 Dose: 200 mls/hr Nafcillin Sodium 2 gm/ Sodium (Chloride) 50 mls @ 100 mls/hr IV Q4H [facility]; Protocol Last Admin: 04/14/22 12:13 Dose: 100 mls/hr Vancomycin HCl 1,500 mg/ (Sodium Chloride) 500 mls @ 333.3 mls/hr IV Q12H [facility] Last Infusion: 04/14/22 10:27 Dose: Infused Lactulose (Lactulose 20 Gm/30 Ml Oral.Suad) 10 gm PO DAILYP PRN PRN Reason: Constipation Lorazepam (Lorazepam 2 Mg/Ml Vial) 0.5 mg IV Q2HP PRN PRN Reason: ANXIETY/SEDATION Last Admin: 04/13/22 17:06 Dose: 0.5 mg Ondansetron HCl (Ondansetron 4 Mg/2 Ml Vial) 4 mg IV Q4HP PRN; Protocol PRN Reason: Nausea And Vomiting Last Admin: 04/13/22 16:03 Dose: 4 mg Senna (Sennosides 1 Tablet) 2 tab PO HSP PRN PRN Reason: Constipation Sodium Chloride (0.9 % Sodium Chloride 10 Ml Syringe) 10 ml IV Q8 [facility] Last Admin: 04/14/22 05:46 Dose: 10 ml Vancomycin HCl (Vancomycin Per Pharmacy) 1 order IV UD [facility]; Protocol A/P Narrative A/P Narrative: 52-year-old with no known past medical history presents now with fever, altered mentation with amphetamine positive on drug screen. There is no evidence of IV drug abuse on physical exam. Patient have Staph aureus meningitis and bacteremia. Staph aureus is a unusual pathogen for meningitis without previous [employer] procedures. I would evaluate for septic embolic event such as endocarditis and brain septic emboli as well as osteomyelitis of the lumbar spine as patient previously presented with low back pain. Patient had TTE which was positive for mitral valve vegetation. MRI of the head also showed multiple septic emboli. Blood culture is positive for MSSA. Recommend DC vancomycin. Continue with nafcillin. Transfer the patient to higher level of care for valve replacement Repeat blood cultures daily to ensure clearance of bacteremia Time Spent With Patient Time: Total time spent is greater than 50% in coordination of care (as documented) at patient's floor/unit and/or counseling patient:
[2022-04-14] MEDS ORDERED: PANTOPRAZOLE 40 MG VIAL IV SCH (12:45)
[2022-04-14] MEDS: LORazepam 2 MG/ML VIAL IV PRN (18:22)
[2022-04-14] MEDS ORDERED: GADOBENATE DIMEGLUMINE 20 ML/VIAL IV ONE (19:12)
[2022-04-15] MEDS: HYDROmorphone 0.5 MG/0.5 ML SYRINGE IV PRN ×6 (02:17→20:02)
[2022-04-15] MEDS: NAFCILLIN 2 GM in 0.9 % SODIUM CHLORIDE 50 ML IV SCH ×5 (04:08→19:25)
[2022-04-15] MEDS: 0.9 % SODIUM CHLORIDE 10 ML SYRINGE IV SCH ×3 (04:24→19:26)
[2022-04-15] MEDS: LORazepam 2 MG/ML VIAL IV PRN (05:20)
[2022-04-15 06:53] LABS: Basophils # (Auto) 0.03 K/mcL (0.00-0.30); Basophils % (Auto) 0.2 % (0.0-2.0); Eosinophils # (Auto) 0.07 K/mcL (0.00-0.70); Eosinophils % (Auto) 0.5 % (0.0-7.0); Hematocrit 37.6 % (34.1-44.9); Lymphocytes # (Auto) 1.73 K/mcL (1.50-4.80); Lymphocytes % (Auto) 13.4 % (15.5-49.0); Mean Cell Volume 85.1 fL (80.0-100.0); Mean Corpuscular HGB Conc 31.9 g/dL (31.0-36.0); Mean Platelet Volume 10.4 fL (8.8-12.5); Monocytes # (Auto) 0.91 K/mcL (0.10-0.90); Monocytes % (Auto) 7.1 % (1.0-12.0); Neutrophils % (Auto) 77.9 % (38.0-78.0); Platelet Count 201 K/mcL (140-440); RBC 4.42 M/mcL (3.59-5.38); Red Cell Distribution Width 15.9 % (11.5-14.5); WBC 12.9 K/mcL (4.5-11.0)
[2022-04-15 07:25] LABS: ALT/SGPT 62 U/L (<40); AST/SGOT 64 U/L (<32); Albumin 1.8 gm/dL (3.2-5.2); Albumin/Globulin Ratio 0.4 (1.0-2.3); Alkaline Phosphatase 174 U/L (39-117); Bilirubin,Direct 0.4 mg/dL (<0.3); Bilirubin,Total 0.9 mg/dL (0.1-1.0); Blood Urea Nitrogen 15 mg/dL (6-20); Calcium 7.4 mg/dL (8.6-10.4); Carbon Dioxide 23 mmol/L (22-30); Chloride 103 mmol/L (96-108); Globulin 4.3 gm/dL (2.2-3.7); Glomerular Filtration Rate 103; Glucose 102 mg/dL (70-105); Lactate Dehydrogenase 622 U/L (135-225); Phosphorous 3.2 mg/dL (2.5-4.5); Triglycerides 332 mg/dL (<150); Uric Acid 2.4 mg/dL (2.5-8.0)
--- NOTE | 2022-04-15 07:27 | Magnetic Resonance Report ---
INDICATION: Evaluate for abscess/infection, or CVA COMPARISON: CT 04/03/2022 TECHNIQUE: Multiplanar MRI of the lumbar spine obtained before and after administration of 20 mL of MultiHance intravenous contrast. FINDINGS: Image quality is significantly limited by motion artifact. The normal lumbar lordosis is present. No lumbar spine fracture. No bony edema. No destructive bony lesion. There is rather significant edema and enhancement at the bilateral facet joints at the L4-5 and L5-S1 levels, more prominent on right side. Some fluid is present in the right L4-5 and L5-S1 facet joints. Significant surrounding paraspinal muscular edema and 17 is edema. Significant edema and enhancement present in right sacral ala. No drainable abscess. No epidural fluid collection. Mild multilevel degenerative disc disease. IMPRESSION: Significant inflammatory process as described involving facet joints at L4-5 and L5-S1 as well as right sacral ala. The abnormality is suggestive of discitis/osteomyelitis. Bony destruction appears to be developing, particularly at right L5-S1 facet region. No evidence of epidural abscess Interpreted and Authenticated by: Luigi Luu M.D. 04/15/22
[2022-04-15] MEDS ORDERED: PANTOPRAZOLE 40 MG VIAL IV SCH (07:30)
[2022-04-15] MEDS: DOCUSATE SODIUM 100 MG CAPSULE PO SCH ×2 (08:27→19:26)
[2022-04-15] MEDS: ENOXAPARIN 40 MG/0.4 ML SYRINGE SQ SCH (08:30)
--- NOTE | 2022-04-15 08:47 | Internal Med Progress Note ---
SUBJECTIVE Subjective Patient information: Note initiated : 04/15/22 at 8:42 am Service Date, if different from initiated Date: [] Patient: Aide Jerez 52 y/o F admitted on 04/11/22 for AMS, Weakness, Fever. Chief Complaint: [] Interval history: HPI: Ms. Jerez is a 52 year old female with no significant past medical history who presented to the emergency department with confusion and fevers. The patient presented with her son who lives with her. The patient is unable to provide a history due to encephalopathy therefore the history was taken from her son who said that she had been sick for 1 to 2 weeks.. She initially complaine d of diffuse muscle aches and was seen in the emergency department about a week prior to admission complaining of lower back pain and pelvic pain. She was discharged to home, a CT of the lumbar spine did not show any acute changes to explain her symptoms. The patient presented to the emergency department again on 04/10/2022 which is the day prior to admission complaining of body aches, fevers and diarrhea. At that time was found to have a sodium level of 125 which was attributed to a viral syndrome. The patient was discharged home then presented on the day of admission with fevers, tachycardia, tachypnea, leukocytosis and a lactic acid level of 2.4. The patient was started on broad-spectrum antibiotics and IV fluid. Sepsis work-up included urinalysis which was not suspicious for UTI, chest x-ray did not show any pulmonary infiltrates. A lumbar puncture was performed by radiology and per report purulent cerebrospinal fluid was drained raising concern for bacterial meningitis. Additionally, the patient did have a UDS in the ED which was positive for amphetamines. It is unclear if the patient has a history of IV drug use. 04/12 Fevers resolved overnight after the patient was started on antibiotics. White blood cell count has increased, likely due to Decadron. Lactic acid trended back to normal. Hyponatremia resolved. LFTs improving. The CSF fluid analysis was consistent with bacterial meningitis, cerebral spinal culture growing Staph aureus with antibiotic sensitivities pending, 1 out of 2 blood cultures positive for gram-positive cocci. Herpes simplex virus PCR pending. Continuing vancomycin IV dosed by pharmacy and ceftriaxone. Discontinued ampicillin as CSF growing Staph aureus and that will be covered sufficiently by vancomycin if it is MRSA or ceftriaxone if it is MSSA. Also discontinued acyclovir as HSV encephalitis is very unlikely. The patient's mental status has improved somewhat since admission. 04/13 Patient had enough improvement in her mentation last night that she was able to take some water by mouth. And follows some simple commands. Today she is awake although appears drowsy. She is able to follow some simple commands but seems to be hemiparetic on the left with the left facial droop. And she does not track with her eyes. Blood cultures and spinal fluid cultures are growing MSSA. Echocardiogram showed a large vegetation on the mitral valve. Repeat blood cultures from yesterday pending. 04/14 MRI with scattered septic emboli infarcts throughout the cerebrum and cerebellum. Leukocytosis improving today. Tmax 100.4 o/n Seen by speech therapy yesterday and put on appropriate dysphagia diet. Patient follows commands but does not verbalize, moans. Had several discussions with family today regarding status and course of action. 04/15 pt mildly more alert today. Testing testing she is able to give her name. Answer some simple questions but difficult to obtain review of systems questions as she answers yes to everything. Other question she seems to answer appropriately like her name and why she is here. Partially opens eyes. lumbar osteo on mri. Review of system:Unable to gather d/t mentation PHYSICAL EXAM: General: Drowsy but awakens, No acute Distress Eyes/N/T: PEERL, unable to gaze to left, no scleral icterus, Head/Neck: neck pain with flexion, rotation mild discomfort CV: RRR, 2/6SM, Pulm: Clear b/l, no wheezing/rhonchi/rales, no respiratory distress Abd: soft, nontender, +BS x4 Ext: no clubbing/cyanosis/edema, nontender Neuro: mildly drowsy, subtle left facial droop, uanble to gaze to left, left hemiplegia, sensations intact, follows commands, does not tract with eyes, Psychiatric: Skin: warm/dry, normal color Constitutional Vitals: Vital Signs Temp Pulse Resp BP Pulse Ox O2 Del Method O2 Flow Rate 99.4 F H 99 H 23 H 153/92 99 Room Air 2 04/15/22 08:01 04/15/22 08:01 04/15/22 08:01 04/15/22 08:01 04/15/22 08:01 04/15/22 08:01 04/15/22 04:00 Period Temp Pulse Resp BP Sys/Gonzales Pulse Ox O2 Del Method O2 Flow Rate Last 24 Hr 97.4 F-102.3 F 85-105 17-27 111-193/70-103 93-100 Nasal Cannula-Room Air 2-2 Intake and Output 04/14/22 04/15/22 04/15/22 19:59 03:59 11:59 Intake Total 2300 440 50 Output Total 860 450 400 Balance 1440 -10 -350 Weight 94.393 kg Intake & Output: Intake & Output 04/14/22 04/15/22 04/15/22 19:59 03:59 11:59 Intake Total 2300 440 50 Output Total 860 450 400 Balance 1440 -10 -350 Weight 94.393 kg Intake: Nourishment/Supplement quantity 240 (ml) IV 100 200 50 Nafcillin 2 gm In Sodium 100 100 50 Chloride 0.9% 50 ml @ 100 mls/ hr IV Q4H [facility] Rx#:[id number] Oral 1960 240 Output: Urine Catheter Amount 860 450 400 Other: Meal Nourishment/Supplement Feeding Ability Total Assistance Nourishment/Supplement name Ensure Clear Urine Appearance Clear Cloudy Urine Color Yellow Yellow Stool Size Large Small Stool Color Brown Brown Green Stool Consistency Loose Liquid # Bowel Movements 1 # of times incontinent of 1 1 Bowels OBJ DATA Labs 04/15/22 05:37 04/15/22 05:34 Labs: Abnormal Lab Results 04/15/22 04/15/22 04/15/22 05:37 05:34 05:34 WBC 12.9 H RDW 15.9 H Immature Gran % (Auto) 0.9 H Neut % (Auto) Lymph % (Auto) 13.4 L Lymph # (Auto) [place] # (Auto) 0.91 H Immature Gran # 0.11 H Absolute Neutrophils 10.02 H Anion Gap BUN Creatinine Glucose Uric Acid 2.4 L Calcium 7.4 L Direct Bilirubin 0.4 H GGT 124 H AST 64 H ALT 62 H Alkaline Phosphatase 174 H Lactate Dehydrogenase 622 H Albumin 1.8 L Globulin 4.3 H Albumin/Globulin Ratio 0.4 L Triglycerides 332 H Procalcitonin 0.79 H 04/14/22 04/14/22 04/13/22 05:30 05:30 05:18 WBC 13.1 H RDW 15.3 H Immature Gran % (Auto) 0.7 H Neut % (Auto) Lymph % (Auto) 14.1 L Lymph # (Auto) [place] # (Auto) Immature Gran # 0.09 H Absolute Neutrophils 10.20 H Anion Gap 7.0 L BUN 27 H 31 H Creatinine 0.5 L Glucose 126 H Uric Acid Calcium 7.5 L 7.8 L Direct Bilirubin 0.8 H 0.4 H GGT 147 H 109 H AST 85 H 63 H ALT 68 H 47 H Alkaline Phosphatase 227 H 201 H Lactate Dehydrogenase 612 H 590 H Albumin 2.0 L 2.0 L Globulin 4.1 H 3.9 H Albumin/Globulin Ratio 0.5 L 0.5 L Triglycerides 376 H 302 H Procalcitonin 04/13/22 05:18 WBC 18.7 H RDW 15.2 H Immature Gran % (Auto) 0.9 H Neut % (Auto) 87.3 H Lymph % (Auto) 6.6 L Lymph # (Auto) 1.23 L [place] # (Auto) 0.94 H Immature Gran # 0.16 H Absolute Neutrophils 16.33 H Anion Gap BUN Creatinine Glucose Uric Acid Calcium Direct Bilirubin GGT AST ALT Alkaline Phosphatase Lactate Dehydrogenase Albumin Globulin Albumin/Globulin Ratio Triglycerides Procalcitonin Meds: Medications Hydrocodone Bitart/Acetaminophen (Hydrocodone/Apap 5/325mg Tablet) 1 tab PO Q4HP PRN; Protocol PRN Reason: Per Pain Protocol Last Admin: 04/15/22 04:54 Dose: 1 tab Docusate Sodium (Docusate Sodium 100 Mg Capsule) 100 mg PO BID [facility] Last Admin: 04/15/22 08:27 Dose: Not Given Enoxaparin Sodium (Enoxaparin 40 Mg/0.4 Ml Syringe) 40 mg SQ DAILY [facility] Last Admin: 04/15/22 08:30 Dose: 40 mg Hydromorphone HCl (Hydromorphone 0.5 Mg/0.5 Ml Syringe) 0.5 mg IV Q2HP PRN; Protocol PRN Reason: Per Pain Protocol Last Admin: 04/15/22 04:23 Dose: 0.5 mg Acetaminophen (Ofirmev) 1,000 mg in 100 mls @ 200 mls/hr IV Q8HP PRN; Protocol PRN Reason: PAIN/FEVER > 101 Last Infusion: 04/14/22 20:24 Dose: Infused Nafcillin Sodium 2 gm/ Sodium (Chloride) 50 mls @ 100 mls/hr IV Q4H [facility]; Protocol Last Admin: 04/15/22 08:29 Dose: 100 mls/hr Lactulose (Lactulose 20 Gm/30 Ml Oral.Suad) 10 gm PO DAILYP PRN PRN Reason: Constipation Lorazepam (Lorazepam 2 Mg/Ml Vial) 0.5 mg IV Q2HP PRN PRN Reason: ANXIETY/SEDATION Last Admin: 04/15/22 05:20 Dose: 0.5 mg Ondansetron HCl (Ondansetron 4 Mg/2 Ml Vial) 4 mg IV Q4HP PRN; Protocol PRN Reason: Nausea And Vomiting Last Admin: 04/13/22 16:03 Dose: 4 mg Pantoprazole Sodium (Pantoprazole 40 Mg Vial) 40 mg IV QAMAC [facility] Last Admin: 04/15/22 07:25 Dose: 40 mg Senna (Sennosides 1 Tablet) 2 tab PO HSP PRN PRN Reason: Constipation Sodium Chloride (0.9 % Sodium Chloride 10 Ml Syringe) 10 ml IV Q8 [facility] Last Admin: 04/15/22 04:24 Dose: 10 ml A/P Narrative A/P Narrative: A: #Bacterial Meningitis/encephalitis (MSSA): #Bacteremia (MSSA): -repeat BC (+) #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 leukocytosis improving slowly now. pct improving #Encephalopathy: 2/2 above, following simple commands and simple questions #Stroke(left hemiparesis/EOM deficit/Left facial droop): 2/2 septic emboli #Oropharyngeal dysphagia,mild: #Transaminitis: #Methamphetamine use disorder, confirmed with family: -UDS (+) #Hyponatremia: improved #Obesity: bmi 33 Plan: -Per ID > Nafcillin, further recs pending -discussed findings on echo/mri with ID, will transfer to higher level of care for CT surgery eval. -awaiting hospital availability for transfer -Tele-infectious disease following -Follow all cx's including serial BC's -Renal CBC,renal function and LFTs. -Neurochecks -diet per ST -monitor i/o, uop, -monitor/trend/replace electrolytes -pt/ot when able -CM for placement needs -ppx: Lovenox / ppi CODE STATUS: Pilot Supervisor Spent With Patient Time: Total time spent is greater than 50% in coordination of care (as documented) at patient's floor/unit and/or counseling patient: Critical Care Time: Yes Total Critical Care Time: 60
[2022-04-15] MEDS ORDERED: POTASSIUM CHLORIDE 20 MEQ TABLET PO ONE (10:00)
[2022-04-15] MEDS ORDERED: POTASSIUM CHLORIDE 20 MEQ PACKET PO ONE (10:01)
[2022-04-15] MEDS: ACETAMINOPHEN 1,000 MG/100 ML BAG IV PRN ×2 (11:34→20:31)
--- NOTE | 2022-04-15 17:49 | Transfer Summary ---
Discharge Provider Provider IMPORTANT FOLLOW-UP INFORMATION FOR PCP: Patient information: Note initiated : 04/15/22 at 5:46 pm Service Date, if different from initiated Date: [] Patient: Aide Jerez 52 y/o F admitted on 04/11/22 for AMS, Weakness, Fever. Chief Complaint: [] Date of admission: 04/11/22 19:25 Discharge date: 04/15/22 Primary care physician: PCP No Consults: 04/11/22 17:10 Consult to Physician [CONS] Stat Comment: Consulting Provider: Evans Rivera Reason For Exam: Physician to Consult 04/12/22 10:29 Consult to Physician [CONS] Routine Comment: Consulting Provider: Morteza Thompson - ID Reason For Exam: Physician to Consult COURSE Hospital Course Hospital course: HPI: Ms. Jerez is a 52 year old female with no significant past medical history who presented to the emergency department with confusion and fevers. The patient presented with her son who lives with her. The patient is unable to provide a history due to encephalopathy therefore the history was taken from her son who said that she had been sick for 1 to 2 weeks.. She initially complained of diffuse muscle aches and was seen in the emergency department about a week prior to admission complaining of lower back pain and pelvic pain. She was discharged to home, a CT of the lumbar spine did not show any acute changes to explain her symptoms. The patient presented to the emergency department again on 04/10/2022 which is the day prior to admission complaining of body aches, fevers and diarrhea. At that time was found to have a sodium level of 125 which was attributed to a viral syndrome. The patient was discharged home then presented on the day of admission with fevers, tachycardia, tachypnea, leukocytosis and a lactic acid level of 2.4. The patient was started on broad- spectrum antibiotics and IV fluid. Sepsis work-up included urinalysis which was not suspicious for UTI, chest x-ray did not show any pulmonary infiltrates. A lumbar puncture was performed by radiology and per report purulent cerebrospinal fluid was drained raising concern for bacterial meningitis. Additionally, the patient did have a UDS in the ED which was positive for amphetamines. It is unclear if the patient has a history of IV drug use. 04/12 Fevers resolved overnight after the patient was started on antibiotics. White blood cell count has increased, likely due to Decadron. Lactic acid trended back to normal. Hyponatremia resolved. LFTs improving. The CSF fluid analysis was consistent with bacterial meningitis, cerebral spinal culture growing Staph aureus with antibiotic sensitivities pending, 1 out of 2 blood cultures positive for gram-positive cocci. Herpes simplex virus PCR pending. Continuing vancomycin IV dosed by pharmacy and ceftriaxone. Discontinued ampicillin as CSF growing Staph aureus and that will be covered sufficiently by vancomycin if it is MRSA or ceftriaxone if it is MSSA. Also discontinued acyclovir as HSV encephalitis is very unlikely. The patient's mental status has improved somewhat since admission. 04/13 Patient had enough improvement in her mentation last night that she was able to take some water by mouth. And follows some simple commands. Today she is awake although appears drowsy. She is able to follow some simple commands but seems to be hemiparetic on the left with the left facial droop. And she does not track with her eyes. Blood cultures and spinal fluid cultures are growing MSSA. Echocardiogram showed a large vegetation on the mitral valve. Repeat blood cultures from yesterday pending. 04/14 MRI with scattered septic emboli infarcts throughout the cerebrum and cerebellum. Leukocytosis improving today. Tmax 100.4 o/n Seen by speech therapy yesterday and put on appropriate dysphagia diet. Patient follows commands but does not verbalize, moans. Had several discussions with family today regarding status and course of action. 04/15 pt mildly more alert today. she is able to give her name. Answer some simple questions but difficult to obtain review of systems questions as she answers yes to everything. Other question she seems to answer appropriately like her name and why she is here for which she states "sick". Partially opens eyes. lumbar osteo on mri. 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 leukocytosis improving slowly now. pct improving #Encephalopathy: 2/2 above, following simple commands and simple questions, waxes/wanes #Stroke(left hemiparesis/EOM deficit/Left facial droop): 2/2 septic emboli #Oropharyngeal dysphagia,mild: #Transaminitis: #Methamphetamine use disorder, confirmed with family: unsure of route -UDS (+) #Hyponatremia: improved #Obesity: bmi 33 Plan: -Per ID > Nafcillin -Transfer to higher level of care Discharge diagnosis: Bacterial meningitis endocarditis bacteremia osteomyelitis stroke Secondary discharge diagnosis: UTI sepsis Encephalopathy transaminitis methamphetamine abuse obesity Time Spent with Patient Time attestation: Total time spent providing and/or coordinating discharge services: Time spent: Greater than 30 minutes EXAM Constitutional Vitals: Temp Pulse Resp BP Pulse Ox O2 Del Method O2 Flow Rate 98.8 F 95 H 19 159/92 98 Nasal Cannula 1 04/15/22 16:12 04/15/22 16:12 04/15/22 16:12 04/15/22 16:12 04/15/22 16:12 04/15/22 16:12 04/15/22 16:12 Discharge Data Data Completed and Pending Labs on day of discharge: Labs from last 24 hours 04/15/22 04/15/22 04/15/22 08:08 05:37 05:34 WBC 12.9 H RBC 4.42 Hgb 12.0 Hct 37.6 MCV 85.1 MCH 27.1 MCHC 31.9 RDW 15.9 H Plt Count 201 MPV 10.4 Immature Gran % (Auto) 0.9 H Neut % (Auto) 77.9 Lymph % (Auto) 13.4 L Major % (Auto) 7.1 Eos % (Auto) 0.5 Baso % (Auto) 0.2 Lymph # (Auto) 1.73 Major # (Auto) 0.91 H Eos # (Auto) 0.07 Baso # (Auto) 0.03 Immature Gran # 0.11 H Absolute Neutrophils 10.02 H Sodium Potassium Chloride Carbon Dioxide Anion Gap BUN Creatinine GFR Calculation Glucose Uric Acid Calcium Phosphorus Magnesium Total Bilirubin Direct Bilirubin GGT AST ALT Alkaline Phosphatase Lactate Dehydrogenase Total Protein Albumin Globulin Albumin/Globulin Ratio Triglycerides Procalcitonin 0.79 H Vancomycin Trough 6.5 04/15/22 05:34 WBC RBC Hgb Hct MCV MCH MCHC RDW Plt Count MPV Immature Gran % (Auto) Neut % (Auto) Lymph % (Auto) Major % (Auto) Eos % (Auto) Baso % (Auto) Lymph # (Auto) Major # (Auto) Eos # (Auto) Baso # (Auto) Immature Gran # Absolute Neutrophils Sodium 139 Potassium 3.3 Chloride 103 Carbon Dioxide 23 Anion Gap 13.0 BUN 15 Creatinine 0.6 GFR Calculation 103 Glucose 102 Uric Acid 2.4 L Calcium 7.4 L Phosphorus 3.2 Magnesium 2.4 Total Bilirubin 0.9 Direct Bilirubin 0.4 H GGT 124 H AST 64 H ALT 62 H Alkaline Phosphatase 174 H Lactate Dehydrogenase 622 H Total Protein 6.1 Albumin 1.8 L Globulin 4.3 H Albumin/Globulin Ratio 0.4 L Triglycerides 332 H Procalcitonin Vancomycin Trough Preliminary micro results at discharge 04/14/22 11:25 Blood Culture - Preliminary Blood Gram positive cocci 04/14/22 11:30 Blood Culture - Preliminary Blood Gram positive cocci 04/12/22 14:16 Blood Culture - Preliminary Blood Gram positive cocci 04/12/22 14:08 Blood Culture - Preliminary Blood Gram positive cocci 04/11/22 18:50 Blood Culture - Preliminary Blood Staphylococcus aureus Discharge Plan Patient/Caregiver Discharge Instructions Prescriptions: No Action cyclobenzaprine 5 mg tablet 5 mg PO TID PRN (Reason: muscle spasm) Qty: 15 0RF ketorolac 10 mg tablet 10 mg PO TID Follow Up Plan Follow up with: No,PCP [Primary Care Provider] - Patient Disposition: [facility] Prognosis: Critical Overall status at discharge: patient is not back to baseline
[2022-04-22 16:45] LABS: East EQ IGG CSF <1:1; HSV 1 IGG Index CSF 0.93; HSV 1 IGM Screen CSF NEGATIVE; HSV 2 IBM Screen CSF NEGATIVE; HSV 2 IGG Index CSF 3.26; LCM IGG <1:1; LCM IGM <1:1; WNV IGG Screen <1.30 index; WNV IGM Screen <0.90 index
[2022-04-22 17:07] LABS: Interpretation ANTIBODY NOT DETECTE
== END 2022-04-15 21:02 | disposition short-term general hospital (02) | DRG 94 ==
LOC: ED 13:34 → ICU 19:25
PROVIDERS: ADMIT Internal Medicine; ATTEND Internal Medicine